=== PATIENT | female | born 1990 | race African-American/Black ===

== ENCOUNTER 2019-12-15 11:14 | Inpatient (IN) ==
[2019-12-15 13:00] LABS: INR 1.1; PT Patient Result 11.9 SECS (9.8-11.9)
[2019-12-15 13:10] LABS: Basophils % 0.6 % (0.0-0.8); Eosinophils # 0.1 10*3/uL (0.0-0.87); Eosinophils % 1.3 % (0.00-10.9); Immature Granulocytes % 0.5 %; Immature Granulocytes Absolute 0.03 #; Lymphocytes # 2.4 10*3/uL (1.4-4.0); Lymphocytes % 37.7 % (21.3-54.2); Mean Corpuscular Volume 80.1 FL (87-102); Monocytes % 9.9 % (1.7-12.7); Platelet Count 406 T/CUMM (130-400); Red Blood Count 3.87 MC/CUMM (3.8-5.5); Red Cell Distribution Width 16.2 % (9.3-17.3); White Blood Count 6.2 T/CUMM (4-12)
[2019-12-15 13:14] LABS: Albumin 3.1 G/DL (3.4-5.0); Bilirubin,Total 0.6 MG/DL (0.2-1.0); Calcium 8.4 MG/DL (8.5-10.1); Osmolality,Calculated 279.3 MOS/KG (273-304); Total Protein 6.9 G/DL (6.4-8.3)
[2019-12-15 13:26] LABS: Ferritin 17.4 ng/ml (8-252)
[2019-12-15 13:38] LABS: Apearance,Urine CLEAR (Clear); Bilirubin,Urine Negative (Negative); Blood, Urine Negative (Negative); Glucose,Urine (UA) Negative (Negative); Hyaline Casts,Urine 1 /LPF (0-3); Ketones,Urine Negative (Negative); Mucus,Urine Occasional /LPF (Occasional); Nitrite,Urine Negative (Negative); Protein,Urine 30 MG/DL; Squamous Epithelial Cell,Urine Few /HPF (0-10); Urine Color Yellow (Yellow); Urine Specific Gravity 1.011 (1.001-1.035); Urine Urobilinogen < 2.0 EU/DL (0.2-1.0)
[2019-12-15] MEDS ORDERED: FUROSEMIDE 100 MG/10 ML VIAL IV STA (13:51)
[2019-12-15] MEDS ORDERED: cefTRIAXone 1,000 MG in SODIUM CHLORIDE 0.9% 100 ML IV STA (14:01)
[2019-12-15] MEDS ORDERED: ACETAMINOPHEN 325 MG TABLET PO PRN (15:29)
[2019-12-15] MEDS ORDERED: DEXTROSE 50% 25 GM/50 ML VIAL IV PRN (15:29)
[2019-12-15] MEDS ORDERED: GLUCAGON 1 MG VIAL IM PRN (15:29)
[2019-12-15] MEDS ORDERED: diphenhydrAMINE CAP 25 MG CAPSULE PO PRN (15:29)
[2019-12-15] MEDS ORDERED: BISACODYL 5 MG TABLET PO PRN (15:29)
[2019-12-15] MEDS ORDERED: ONDANSETRON 4 MG/2 ML VIAL IV PRN (15:29)
[2019-12-15] MEDS ORDERED: DOCUSATE SODIUM 100 MG CAPSULE PO PRN (15:29)
[2019-12-15] MEDS ORDERED: ALUMINUM/MAGNES/SIMETH MAX STR 30 ML UDCUP PO PRN (15:29)
[2019-12-15] MEDS ORDERED: NICOTINE 21 MG/24 HR PATCH TRANSDERM PRN (15:29)
[2019-12-15] MEDS ORDERED: guaiFENesin/DM ER 600-30 MG TABLET PO PRN (15:29)
[2019-12-15] MEDS ORDERED: ZALEPLON 5 MG CAPSULE PO PRN (15:29)
[2019-12-15] MEDS ORDERED: LACTULOSE 20 GM/30 ML UDCUP PO PRN (15:29)
[2019-12-15] MEDS ORDERED: hydrALAZINE 20 MG/1 ML VIAL IV PRN (15:29)
[2019-12-15] MEDS ORDERED: CALCIUM CARBONATE CHEW 500 MG TABLET PO PRN (15:29)
[2019-12-15] MEDS ORDERED: SIMETHICONE CHEW 125 MG TABLET PO PRN (15:29)
[2019-12-15] MEDS ORDERED: traZODone 50 MG TABLET PO PRN (15:29)
[2019-12-15] MEDS ORDERED: MAGNESIUM SULF RIDER 2 GM in PREMIX 1 EACH IV PRN (15:39)
[2019-12-15] MEDS ORDERED: MAGNESIUM SULF RIDER 4 GM in PREMIX 1 EACH IV PRN (15:39)
[2019-12-15] MEDS ORDERED: FUROSEMIDE 40 MG/4 ML VIAL IV SCH (16:00)
[2019-12-15 17:39] LABS: Barbiturates Screen,Urine Negative (Negative); Benzodiazepines Screen,Urine Negative (Negative); Cannabinoid Screen,Urine Negative (Negative); Opiate Screen,Urine Negative (Negative); Phencyclidine Screen,Urine Negative (Negative)
[2019-12-15] MEDS ORDERED: HEPARIN DRIP 25,000 UNITS/500 ML PREMIX IV SCH (18:00)
[2019-12-15] MEDS: ALBUTEROL/IPRATROPIUM 3 ML NEB RESP TX SCH (19:36)
[2019-12-15 21:03] LABS: Hypochromasia 3+; Ovalocytes Slight
[2019-12-15] MEDS: guaiFENesin/DM ER 600-30 MG TABLET PO SCH (21:42)
[2019-12-15] MEDS: methylPREDNISolone SOD SUC 40 MG/1 ML VIAL IV SCH (21:42)
[2019-12-15] MEDS: CLINDAMYCIN INJ 900 MG in PREMIX 1 EACH IV SCH (21:42)
[2019-12-16] MEDS: POTASSIUM CHLORIDE RIDER 10 MEQ in PREMIX 1 EACH IV PRN ×2 (00:17→01:40)
[2019-12-16] MEDS: ALBUTEROL/IPRATROPIUM 3 ML NEB RESP TX SCH ×4 (01:04→19:54)
[2019-12-16] MEDS: CLINDAMYCIN INJ 900 MG in PREMIX 1 EACH IV SCH (04:55)
[2019-12-16] MEDS: methylPREDNISolone SOD SUC 40 MG/1 ML VIAL IV SCH (05:45)
[2019-12-16] MEDS: HEPARIN DRIP 25,000 UNITS/500 ML PREMIX IV SCH ×2 (05:50→15:44)
[2019-12-16 09:18] LABS: Bilirubin,Total 0.8 MG/DL (0.2-1.0); Calcium 8.8 MG/DL (8.5-10.1); Osmolality,Calculated 272.1 MOS/KG (273-304); Risk Ratio 4.18; Thyroid Stimulating Hormone 0.591 uIU/ml (0.358-3.74); Total Protein 7.6 G/DL (6.4-8.3)
[2019-12-16] MEDS: guaiFENesin/DM ER 600-30 MG TABLET PO SCH ×2 (09:44→21:31)
[2019-12-16] MEDS: FUROSEMIDE 40 MG/4 ML VIAL IV SCH (09:45)
[2019-12-16] MEDS: PANTOPRAZOLE 40 MG TABLET PO SCH (09:45)
[2019-12-16] MEDS: cefTRIAXone 1,000 MG in SYRINGE 1 EACH IV SCH (09:48)
[2019-12-16] MEDS ORDERED: predniSONE 20 MG TABLET PO SCH (14:00)
[2019-12-16] MEDS: predniSONE 20 MG TABLET PO SCH ×2 (14:42→21:31)
[2019-12-16] MEDS: CLINDAMYCIN 300 MG CAPSULE PO SCH ×2 (14:42→21:26)
[2019-12-16] MEDS: FUROSEMIDE 40 MG TABLET PO SCH (15:49)
[2019-12-16] MEDS ORDERED: carvediloL 6.25 MG TABLET PO SCH (21:00)
[2019-12-16] MEDS: SACUBITRIL/VALSARTAN 49-51 MG TABLET PO SCH (21:29)
[2019-12-16] MEDS: carvediloL 3.125 MG TABLET PO SCH (21:34)
[2019-12-17] MEDS: ALBUTEROL/IPRATROPIUM 3 ML NEB RESP TX SCH ×4 (01:00→20:08)
[2019-12-17] MEDS: HEPARIN DRIP 25,000 UNITS/500 ML PREMIX IV SCH ×2 (01:55→16:40)
[2019-12-17 02:11] LABS: Bilirubin,Total 0.4 MG/DL (0.2-1.0); Calcium 8.7 MG/DL (8.5-10.1); Osmolality,Calculated 278.7 MOS/KG (273-304); Total Protein 7.1 G/DL (6.4-8.3)
[2019-12-17 02:21] LABS: Basophils % 0.1 % (0.0-0.8); Hematocrit 31.9 VOL% (35.7-47.0); Hemoglobin 9.4 GM/DL (12.0-16.0); Immature Granulocytes % 0.4 %; Immature Granulocytes Absolute 0.06 #; Lymphocytes # 0.9 10*3/uL (1.4-4.0); Lymphocytes % 6.3 % (21.3-54.2); Mean Corpuscular HGB Conc 29.5 GM/DL (32-36); Mean Corpuscular Volume 79.6 FL (87-102); Mean Platelet Volume 9.1 FL (9.6-12.0); Monocytes % 4.1 % (1.7-12.7); Neutrophils % 89.1 % (38.7-73.9); Platelet Count 399 T/CUMM (130-400); Red Blood Count 4.01 MC/CUMM (3.8-5.5); Red Cell Distribution Width 16.4 % (9.3-17.3); White Blood Count 13.8 T/CUMM (4-12)
[2019-12-17] MEDS: CLINDAMYCIN 300 MG CAPSULE PO SCH (05:27)
[2019-12-17] MEDS: FUROSEMIDE 40 MG TABLET PO SCH ×2 (08:39→15:08)
[2019-12-17] MEDS: SACUBITRIL/VALSARTAN 49-51 MG TABLET PO SCH ×2 (08:39→21:51)
[2019-12-17] MEDS: FUROSEMIDE 40 MG/4 ML VIAL IV SCH (08:39)
[2019-12-17] MEDS: PANTOPRAZOLE 40 MG TABLET PO SCH (08:40)
[2019-12-17] MEDS: carvediloL 3.125 MG TABLET PO SCH (08:41)
[2019-12-17] MEDS: cefTRIAXone 1,000 MG in SYRINGE 1 EACH IV SCH (08:41)
[2019-12-17] MEDS: guaiFENesin/DM ER 600-30 MG TABLET PO SCH ×2 (08:41→21:51)
[2019-12-17] MEDS: CLINDAMYCIN INJ 900 MG in PREMIX 1 EACH IV SCH (10:50)
[2019-12-17] MEDS: CLINDAMYCIN 150 MG CAPSULE PO SCH ×2 (15:08→21:52)
[2019-12-17] MEDS: methylPREDNISolone SOD SUC 40 MG/1 ML VIAL IV SCH ×2 (15:09→21:53)
[2019-12-17] MEDS: carvediloL 6.25 MG TABLET PO SCH (16:40)
[2019-12-17] MEDS: SPIRONOLACTONE 25 MG TABLET PO SCH (16:40)
[2019-12-17] MEDS: APIXABAN 5 MG TABLET PO SCH (21:52)
[2019-12-18] MEDS: ALBUTEROL/IPRATROPIUM 3 ML NEB RESP TX SCH ×4 (00:42→19:36)
[2019-12-18 01:06] LABS: Basophils % 0.1 % (0.0-0.8); Hematocrit 31.6 VOL% (35.7-47.0); Hemoglobin 9.2 GM/DL (12.0-16.0); Immature Granulocytes % 0.7 %; Lymphocytes # 0.8 10*3/uL (1.4-4.0); Mean Corpuscular HGB Conc 29.1 GM/DL (32-36); Mean Corpuscular Volume 80.2 FL (87-102); Mean Platelet Volume 9.7 FL (9.6-12.0); Monocytes % 1.8 % (1.7-12.7); Neutrophils % 91.4 % (38.7-73.9); Platelet Count 317 T/CUMM (130-400); Red Blood Count 3.94 MC/CUMM (3.8-5.5); Red Cell Distribution Width 16.6 % (9.3-17.3); White Blood Count 14.1 T/CUMM (4-12)
[2019-12-18 01:35] LABS: Alanine Aminotransferase 25 U/L (13-56); Albumin 2.7 G/DL (3.4-5.0); Alkaline Phosphatase 102 U/L (45-117); Aspartate Amino Transferase 16 U/L (0-37); Bilirubin,Total < 0.39 MG/DL (0.2-1.0); Blood Urea Nitrogen 17 MG/DL (7-18); Calcium 8.1 MG/DL (8.5-10.1); Estimated Glom Filtration Rate 122 ML/MIN; Glucose 187 MG/DL (74-106); Osmolality,Calculated 285.4 MOS/KG (273-304); Total Protein 6.3 G/DL (6.4-8.3)
[2019-12-18 05:01] LABS: Lymphocytes 7 % (20-55); Segmented Neutrophils 91 % (50-85); Total Cells Counted 100
[2019-12-18 05:02] LABS: Hypochromasia 2+
[2019-12-18 05:03] LABS: Microcytosis 1+; Ovalocytes Few
[2019-12-18] MEDS: methylPREDNISolone SOD SUC 40 MG/1 ML VIAL IV SCH ×3 (05:50→21:57)
[2019-12-18] MEDS: CLINDAMYCIN 150 MG CAPSULE PO SCH ×3 (05:50→21:57)
[2019-12-18] MEDS ORDERED: KETOROLAC 30 MG/1 ML VIAL IV ONE (09:32)
[2019-12-18] MEDS: SPIRONOLACTONE 25 MG TABLET PO SCH (09:38)
[2019-12-18] MEDS: APIXABAN 5 MG TABLET PO SCH ×2 (09:39→21:58)
[2019-12-18] MEDS: FUROSEMIDE 40 MG TABLET PO SCH ×2 (09:39→16:14)
[2019-12-18] MEDS: SACUBITRIL/VALSARTAN 49-51 MG TABLET PO SCH ×2 (09:42→21:58)
[2019-12-18] MEDS: carvediloL 6.25 MG TABLET PO SCH ×2 (09:42→16:15)
[2019-12-18] MEDS: guaiFENesin/DM ER 600-30 MG TABLET PO SCH ×2 (09:42→21:57)
[2019-12-18] MEDS: PANTOPRAZOLE 40 MG TABLET PO SCH (09:42)
[2019-12-18] MEDS: cefTRIAXone 1,000 MG in SYRINGE 1 EACH IV SCH (09:45)
[2019-12-19] MEDS: ALBUTEROL/IPRATROPIUM 3 ML NEB RESP TX SCH ×2 (00:47→07:30)
[2019-12-19 04:43] LABS: Basophils % 0.1 % (0.0-0.8); Immature Granulocytes % 0.6 %; Lymphocytes % 5.8 % (21.3-54.2); Mean Corpuscular HGB Conc 28.7 GM/DL (32-36); Mean Corpuscular Volume 80.3 FL (87-102); Mean Platelet Volume 8.8 FL (9.6-12.0); Monocytes % 3.6 % (1.7-12.7); Neutrophils % 89.9 % (38.7-73.9); Platelet Count 412 T/CUMM (130-400); Red Blood Count 4.17 MC/CUMM (3.8-5.5); Red Cell Distribution Width 16.8 % (9.3-17.3); White Blood Count 16.5 T/CUMM (4-12)
[2019-12-19 05:15] LABS: Albumin 2.8 G/DL (3.4-5.0); Bilirubin,Total 0.6 MG/DL (0.2-1.0); Osmolality,Calculated 288.5 MOS/KG (273-304); Total Protein 6.5 G/DL (6.4-8.3)
[2019-12-19] MEDS: methylPREDNISolone SOD SUC 40 MG/1 ML VIAL IV SCH ×2 (05:34→15:08)
[2019-12-19] MEDS: CLINDAMYCIN 150 MG CAPSULE PO SCH ×2 (05:34→15:08)
[2019-12-19 05:38] LABS: Hematocrit 32.7 VOL% (35.7-47.0); Hemoglobin 9.7 GM/DL (12.0-16.0)
[2019-12-19 06:15] LABS: Anisocytosis 1+; Hypochromasia 2+; Microcytosis 1+; Ovalocytes Few; Platelet Estimate Increased; Polychromasia Slight
[2019-12-19] MEDS: guaiFENesin/DM ER 600-30 MG TABLET PO SCH (09:09)
[2019-12-19] MEDS: SACUBITRIL/VALSARTAN 49-51 MG TABLET PO SCH (09:09)
[2019-12-19] MEDS: cefTRIAXone 1,000 MG in SYRINGE 1 EACH IV SCH (09:10)
[2019-12-19] MEDS: SPIRONOLACTONE 25 MG TABLET PO SCH (09:10)
[2019-12-19] MEDS: PANTOPRAZOLE 40 MG TABLET PO SCH (09:10)
[2019-12-19] MEDS: carvediloL 6.25 MG TABLET PO SCH ×2 (09:10→17:11)
[2019-12-19] MEDS: FUROSEMIDE 40 MG TABLET PO SCH ×2 (09:10→17:11)
[2019-12-19] MEDS: APIXABAN 5 MG TABLET PO SCH (09:10)
[2019-12-19 16:56] VITALS: BP 123/75
== END 2019-12-19 18:50 | disposition home or self-care (01) | DRG 291 ==
LOC: N.ED 11:14 → N.EDINP 15:29 → SUATTDRO 15:29 → N.3E 17:35
PROVIDERS: ADMIT Hospitalist; ATTEND Emergency Medicine

== ENCOUNTER 2019-12-25 16:52 | Observation (INO) ==
[2019-12-25] MEDS ORDERED: VANCOMYCIN INJ 1,000 MG in SODIUM CHLORIDE 0.9% 250 ML IV STA (17:21)
[2019-12-25] MEDS ORDERED: ONDANSETRON 4 MG/2 ML VIAL IV STA (17:21)
[2019-12-25] MEDS ORDERED: FUROSEMIDE 100 MG/10 ML VIAL IV STA (17:21)
[2019-12-25] MEDS ORDERED: PIPERACILLIN/TAZOBACTAM 3,375 MG in SODIUM CHLORIDE 0.9% 100 ML IV STA (17:21)
[2019-12-25] MEDS ORDERED: ALBUTEROL/IPRATROPIUM 3 ML NEB RESP TX STA (17:21)
[2019-12-25] MEDS ORDERED: methylPREDNISolone SOD SUC 125 MG/2 ML VIAL IV STA (17:21)
[2019-12-25] MEDS ORDERED: LABETALOL 20 MG/4 ML SYRINGE IV STA (18:06)
[2019-12-25 19:52] LABS: Basophils % 0.5 % (0.0-0.8); Eosinophils # 0.1 10*3/uL (0.0-0.87); Eosinophils % 1.1 % (0.00-10.9); Hematocrit 31.1 VOL% (35.7-47.0); Hemoglobin 9.2 GM/DL (12.0-16.0); Immature Granulocytes % 0.5 %; Immature Granulocytes Absolute 0.04 #; Lymphocytes # 2.5 10*3/uL (1.4-4.0); Lymphocytes % 33.6 % (21.3-54.2); Mean Corpuscular HGB Conc 29.6 GM/DL (32-36); Mean Corpuscular Volume 77.9 FL (87-102); Mean Platelet Volume 8.6 FL (9.6-12.0); Monocytes % 7.1 % (1.7-12.7); Neutrophils % 57.2 % (38.7-73.9); Platelet Count 381 T/CUMM (130-400); Red Blood Count 3.99 MC/CUMM (3.8-5.5); Red Cell Distribution Width 17.6 % (9.3-17.3); White Blood Count 7.5 T/CUMM (4-12)
[2019-12-25 20:08] LABS: INR 1.1; PT Patient Result 11.9 SECS (9.8-11.9); Partial Thromboplastin Time 24.8 SECS (23.9-33.8)
[2019-12-25 20:16] LABS: Alanine Aminotransferase 40 U/L (13-56); Albumin 3.2 G/DL (3.4-5.0); Alkaline Phosphatase 80 U/L (45-117); Aspartate Amino Transferase 16 U/L (0-37); Blood Urea Nitrogen 10 MG/DL (7-18); Calcium 8.6 MG/DL (8.5-10.1); Estimated Glom Filtration Rate 142 ML/MIN; Ferritin 31.1 ng/ml (8-252); Glucose 95 MG/DL (74-106); Osmolality,Calculated 277.4 MOS/KG (273-304); Total Protein 6.4 G/DL (6.4-8.3); Troponin I 0.023 NG/ML (0.00-0.045)
[2019-12-25 20:47] LABS: Apearance,Urine CLEAR (Clear); Bilirubin,Urine Negative (Negative); Blood, Urine Negative (Negative); Glucose,Urine (UA) Negative (Negative); Ketones,Urine Negative (Negative); Nitrite,Urine Negative (Negative); Protein,Urine Negative; RBC,Urine <1 /HPF (0-4); Squamous Epithelial Cell,Urine Occasional /HPF (0-10); Urine Color Yellow (Yellow); Urine Specific Gravity 1.012 (1.001-1.035); WBC,Urine 1 /HPF (0-6)
[2019-12-25] MEDS ORDERED: ACETAMINOPHEN 325 MG TABLET PO PRN (21:31)
[2019-12-25] MEDS ORDERED: ONDANSETRON 4 MG/2 ML VIAL IV PRN (21:31)
[2019-12-25] MEDS ORDERED: DEXTROSE 50% 25 GM/50 ML VIAL IV PRN (21:31)
[2019-12-25] MEDS ORDERED: GLUCAGON 1 MG VIAL IM PRN (21:31)
[2019-12-25] MEDS: AMOXICILLIN/CLAV 875 MG TABLET PO SCH (23:37)
[2019-12-25] MEDS: ALBUTEROL/IPRATROPIUM 3 ML NEB RESP TX SCH (23:55)
[2019-12-26] MEDS: ALBUTEROL/IPRATROPIUM 3 ML NEB RESP TX SCH ×3 (03:01→11:00)
[2019-12-26] MEDS: methylPREDNISolone SOD SUC 40 MG/1 ML VIAL IV SCH ×2 (04:47→11:51)
[2019-12-26 06:01] LABS: Basophils % 0.1 % (0.0-0.8); Hematocrit 31.6 VOL% (35.7-47.0); Hemoglobin 9.5 GM/DL (12.0-16.0); Immature Granulocytes % 0.6 %; Immature Granulocytes Absolute 0.05 #; Lymphocytes # 0.6 10*3/uL (1.4-4.0); Lymphocytes % 6.8 % (21.3-54.2); Mean Corpuscular HGB Conc 30.1 GM/DL (32-36); Mean Platelet Volume 8.5 FL (9.6-12.0); Monocytes % 0.9 % (1.7-12.7); Neutrophils % 91.6 % (38.7-73.9); Platelet Count 360 T/CUMM (130-400); Red Blood Count 4.16 MC/CUMM (3.8-5.5); Red Cell Distribution Width 17.5 % (9.3-17.3)
[2019-12-26 06:28] LABS: Calcium 8.8 MG/DL (8.5-10.1); Lymphocytes 6 % (20-55); Osmolality,Calculated 279.5 MOS/KG (273-304); Platelet Estimate Adequate; Risk Ratio 4.46; Segmented Neutrophils 93 % (50-85); Total Cells Counted 100
[2019-12-26 06:29] LABS: Hypochromasia 1+; Microcytosis Slight; Ovalocytes Slight
[2019-12-26] MEDS ORDERED: PANTOPRAZOLE 40 MG TABLET PO SCH (09:00)
[2019-12-26] MEDS ORDERED: LOSARTAN 50 MG TABLET PO SCH (09:00)
[2019-12-26] MEDS ORDERED: APIXABAN 5 MG TABLET PO SCH (09:00)
[2019-12-26] MEDS ORDERED: POTASSIUM CHLORIDE 20 MEQ TABLET PO SCH (09:00)
[2019-12-26] MEDS ORDERED: carvediloL 12.5 MG TABLET PO SCH (09:00)
[2019-12-26] MEDS: AMOXICILLIN/CLAV 875 MG TABLET PO SCH (09:13)
[2019-12-26] MEDS: FUROSEMIDE 40 MG/4 ML VIAL IV SCH ×2 (09:13→16:48)
[2019-12-26 11:39] VITALS: BP 121/69
== END 2019-12-26 18:40 | disposition home or self-care (01) ==
LOC: N.ED 16:52 → INTOOBSV 21:31 → N.EDINP 21:31 → N.TELEN 22:29
PROVIDERS: ADMIT Internal Medicine; ATTEND Internal Medicine

== ENCOUNTER 2020-01-11 16:06 | Inpatient (IN) ==
[2020-01-11] MEDS ORDERED: FUROSEMIDE 40 MG/4 ML VIAL IV STA (17:38)
[2020-01-11 17:50] LABS: Basophils % 0.6 % (0.0-0.8); Eosinophils # 0.1 10*3/uL (0.0-0.87); Eosinophils % 1.9 % (0.00-10.9); Hematocrit 33.5 VOL% (35.7-47.0); Hemoglobin 9.9 GM/DL (12.0-16.0); Immature Granulocytes % 0.3 %; Immature Granulocytes Absolute 0.02 #; Lymphocytes # 2.6 10*3/uL (1.4-4.0); Lymphocytes % 38.8 % (21.3-54.2); Mean Corpuscular HGB Conc 29.6 GM/DL (32-36); Mean Corpuscular Volume 77.4 FL (87-102); Mean Platelet Volume 8.7 FL (9.6-12.0); Monocytes % 8.8 % (1.7-12.7); Neutrophils % 49.6 % (38.7-73.9); Platelet Count 372 T/CUMM (130-400); Red Blood Count 4.33 MC/CUMM (3.8-5.5); Red Cell Distribution Width 18.8 % (9.3-17.3); White Blood Count 6.7 T/CUMM (4-12)
[2020-01-11 17:53] LABS: Albumin 3.3 G/DL (3.4-5.0); Bilirubin,Total 0.4 MG/DL (0.2-1.0); Calcium 8.8 MG/DL (8.5-10.1); Osmolality,Calculated 273.7 MOS/KG (273-304); Total Protein 6.9 G/DL (6.4-8.3)
[2020-01-11 18:00] LABS: INR 1.1; PT Patient Result 11.6 SECS (9.8-11.9)
[2020-01-11 18:11] LABS: Anisocytosis 1+; Eosinophils 1 % (0-10); Hypochromasia 1+; Lymphocytes 25 % (20-55); Macrocytosis Slight; Microcytosis 1+; Platelet Estimate Normal; Polychromasia Few; Segmented Neutrophils 67 % (50-85); Total Cells Counted 100
[2020-01-11] MEDS ORDERED: MORPHINE 4 MG/1 ML VIAL IV PRN (19:22)
[2020-01-11] MEDS ORDERED: SIMETHICONE CHEW 125 MG TABLET PO PRN (19:22)
[2020-01-11] MEDS ORDERED: ALUMINUM/MAGNES/SIMETH MAX STR 30 ML UDCUP PO PRN (19:22)
[2020-01-11] MEDS ORDERED: diphenhydrAMINE CAP 25 MG CAPSULE PO PRN (19:22)
[2020-01-11] MEDS ORDERED: CALCIUM CARBONATE CHEW 500 MG TABLET PO PRN (19:22)
[2020-01-11] MEDS ORDERED: ZALEPLON 5 MG CAPSULE PO PRN (19:22)
[2020-01-11] MEDS ORDERED: hydrALAZINE 20 MG/1 ML VIAL IV PRN (19:22)
[2020-01-11] MEDS ORDERED: GLUCAGON 1 MG VIAL IM PRN (19:22)
[2020-01-11] MEDS ORDERED: DEXTROSE 50% 25 GM/50 ML VIAL IV PRN (19:22)
[2020-01-11] MEDS ORDERED: PROMETHAZINE 25 MG/1 ML VIAL IM PRN (19:22)
[2020-01-11] MEDS ORDERED: AZITHROMYCIN INJ 500 MG in SODIUM CHLORIDE 0.9% 250 ML IV SCH (19:30)
[2020-01-11] MEDS ORDERED: ALBUTEROL INHALER 18 GM INH PRN (20:12)
[2020-01-11] MEDS: APIXABAN 5 MG TABLET PO SCH (23:23)
[2020-01-11] MEDS: DOCUSATE SODIUM 100 MG CAPSULE PO SCH (23:23)
[2020-01-11] MEDS: carvediloL 12.5 MG TABLET PO SCH (23:24)
[2020-01-12] MEDS: cefTRIAXone 1,000 MG in SYRINGE 1 EACH IV SCH ×2 (00:28→20:12)
[2020-01-12] MEDS: ONDANSETRON 4 MG/2 ML VIAL IV PRN ×2 (00:36→12:31)
[2020-01-12] MEDS: ALBUTEROL INHALER 18 GM INH SCH ×9 (06:04→22:10)
[2020-01-12 07:07] LABS: Albumin 3.2 G/DL (3.4-5.0); Bilirubin,Total 1.1 MG/DL (0.2-1.0); Calcium 8.9 MG/DL (8.5-10.1); Total Protein 6.9 G/DL (6.4-8.3)
[2020-01-12 07:08] LABS: Osmolality,Calculated 278.3 MOS/KG (273-304)
[2020-01-12 07:13] LABS: Basophils % 0.3 % (0.0-0.8); Eosinophils # 0.2 10*3/uL (0.0-0.87); Eosinophils % 2.9 % (0.00-10.9); Hematocrit 33.4 VOL% (35.7-47.0); Immature Granulocytes % 0.3 %; Immature Granulocytes Absolute 0.02 #; Lymphocytes # 2.2 10*3/uL (1.4-4.0); Lymphocytes % 36.3 % (21.3-54.2); Mean Corpuscular HGB Conc 28.7 GM/DL (32-36); Mean Corpuscular Volume 78.8 FL (87-102); Mean Platelet Volume 8.5 FL (9.6-12.0); Monocytes % 8.5 % (1.7-12.7); Neutrophils % 51.7 % (38.7-73.9); Platelet Count 356 T/CUMM (130-400); Red Blood Count 4.24 MC/CUMM (3.8-5.5); Red Cell Distribution Width 18.9 % (9.3-17.3); White Blood Count 6.2 T/CUMM (4-12)
[2020-01-12 07:15] LABS: Hemoglobin 9.6 GM/DL (12.0-16.0)
[2020-01-12 07:42] LABS: Hypochromasia 1+; Microcytosis Slight; Ovalocytes Slight; Platelet Estimate Adequate
[2020-01-12] MEDS: PANTOPRAZOLE 40 MG TABLET PO SCH (08:04)
[2020-01-12] MEDS: POTASSIUM CHLORIDE 20 MEQ TABLET PO SCH (08:04)
[2020-01-12] MEDS: DOCUSATE SODIUM 100 MG CAPSULE PO SCH ×2 (08:04→20:12)
[2020-01-12] MEDS: FUROSEMIDE 40 MG/4 ML VIAL IV SCH ×2 (08:05→16:15)
[2020-01-12] MEDS: APIXABAN 5 MG TABLET PO SCH ×2 (08:05→20:12)
[2020-01-12] MEDS: AZITHROMYCIN 250 MG TABLET PO SCH (08:05)
[2020-01-12] MEDS: guaiFENesin/DM ER 600-30 MG TABLET PO PRN (08:05)
[2020-01-12] MEDS: carvediloL 12.5 MG TABLET PO SCH ×2 (08:05→16:15)
[2020-01-12] MEDS: NICOTINE 21 MG/24 HR PATCH TRANSDERM SCH (08:06)
[2020-01-12] MEDS ORDERED: LOSARTAN 50 MG TABLET PO SCH (09:00)
[2020-01-12 13:36] LABS: Troponin I < 0.015 NG/ML (0.00-0.045)
[2020-01-12] MEDS: ACETAMINOPHEN 325 MG TABLET PO PRN ×2 (16:14→23:34)
[2020-01-13] MEDS: ALBUTEROL INHALER 18 GM INH SCH ×6 (01:10→17:14)
[2020-01-13 07:46] LABS: Calcium 8.3 MG/DL (8.5-10.1); Osmolality,Calculated 261.7 MOS/KG (273-304)
[2020-01-13 08:17] LABS: Basophils % 0.5 % (0.0-0.8); Eosinophils # 0.2 10*3/uL (0.0-0.87); Eosinophils % 2.8 % (0.00-10.9); Hematocrit 31.3 VOL% (35.7-47.0); Immature Granulocytes % 0.3 %; Immature Granulocytes Absolute 0.02 #; Lymphocytes # 3.2 10*3/uL (1.4-4.0); Lymphocytes % 52.4 % (21.3-54.2); Mean Corpuscular HGB Conc 28.8 GM/DL (32-36); Mean Corpuscular Volume 79.8 FL (87-102); Mean Platelet Volume 8.8 FL (9.6-12.0); Monocytes % 10.2 % (1.7-12.7); Neutrophils % 33.8 % (38.7-73.9); Platelet Count 357 T/CUMM (130-400); Red Blood Count 3.92 MC/CUMM (3.8-5.5); Red Cell Distribution Width 18.7 % (9.3-17.3); White Blood Count 6.1 T/CUMM (4-12)
[2020-01-13 08:27] LABS: Band Neutrophils 1 % (0-10); Eosinophils 6 % (0-10); Hypochromasia 2+; Lymphocytes 48 % (20-55); Microcytosis Slight; Ovalocytes Slight; Platelet Estimate Adequate; Segmented Neutrophils 38 % (50-85); Total Cells Counted 100
[2020-01-13] MEDS: guaiFENesin/DM ER 600-30 MG TABLET PO PRN (09:20)
[2020-01-13] MEDS: DOCUSATE SODIUM 100 MG CAPSULE PO SCH (09:21)
[2020-01-13] MEDS: FUROSEMIDE 40 MG/4 ML VIAL IV SCH ×2 (09:21→17:14)
[2020-01-13] MEDS: AZITHROMYCIN 250 MG TABLET PO SCH (09:21)
[2020-01-13] MEDS: LOSARTAN 25 MG TABLET PO SCH ×2 (09:21→09:37)
[2020-01-13] MEDS: PANTOPRAZOLE 40 MG TABLET PO SCH (09:21)
[2020-01-13] MEDS: carvediloL 12.5 MG TABLET PO SCH (09:21)
[2020-01-13] MEDS: APIXABAN 5 MG TABLET PO SCH (09:21)
[2020-01-13] MEDS: POTASSIUM CHLORIDE 20 MEQ TABLET PO SCH (09:21)
[2020-01-13] MEDS: NICOTINE 21 MG/24 HR PATCH TRANSDERM SCH (09:22)
[2020-01-13] MEDS: ONDANSETRON 4 MG/2 ML VIAL IV PRN (09:22)
[2020-01-13 09:23] LABS: Ferritin 25.1 ng/ml (8-252)
[2020-01-13] MEDS: ACETAMINOPHEN 325 MG TABLET PO PRN (09:25)
[2020-01-13 09:45] LABS: Folate 12.2 NG/ML (5.4-24.0)
[2020-01-13 17:20] VITALS: BP 100/81
== END 2020-01-13 16:55 | disposition home or self-care (01) | DRG 291 ==
LOC: N.ED 16:06 → N.EDINP 19:22 → N.2E 20:08
PROVIDERS: ADMIT Internal Medicine; ATTEND Internal Medicine

== ENCOUNTER 2020-01-17 21:07 | Observation (INO) ==
[2020-01-17] MEDS ORDERED: ONDANSETRON 4 MG/2 ML VIAL IV STA (21:41)
[2020-01-17] MEDS ORDERED: AZITHROMYCIN INJ 500 MG in SODIUM CHLORIDE 0.9% 250 ML IV STA (21:41)
[2020-01-17] MEDS ORDERED: methylPREDNISolone SOD SUC 125 MG/2 ML VIAL IV STA (21:41)
[2020-01-17] MEDS ORDERED: FUROSEMIDE 100 MG/10 ML VIAL IV STA (21:41)
[2020-01-17] MEDS ORDERED: hydrALAZINE 20 MG/1 ML VIAL IV STA (21:41)
[2020-01-17] MEDS ORDERED: ALBUTEROL NEB SOLN 5 MG/ML 20 ML/BOTTLE CONT NEB SCH (22:00)
[2020-01-17 23:48] LABS: Basophils % 0.5 % (0.0-0.8); Eosinophils # 0.1 10*3/uL (0.0-0.87); Eosinophils % 0.6 % (0.00-10.9); Hematocrit 32.1 VOL% (35.7-47.0); Immature Granulocytes % 0.1 %; Immature Granulocytes Absolute 0.01 #; Lymphocytes # 2.6 10*3/uL (1.4-4.0); Lymphocytes % 31.6 % (21.3-54.2); Mean Corpuscular Volume 78.3 FL (87-102); Mean Platelet Volume 8.5 FL (9.6-12.0); Monocytes % 5.7 % (1.7-12.7); Neutrophils % 61.5 % (38.7-73.9); Platelet Count 378 T/CUMM (130-400); Red Cell Distribution Width 19.4 % (9.3-17.3); White Blood Count 8.1 T/CUMM (4-12)
[2020-01-17 23:55] LABS: Hemoglobin 9.4 GM/DL (12.0-16.0)
[2020-01-18] LABS: INR 1.1; PT Patient Result 12.1 SECS (9.8-11.9); Partial Thromboplastin Time 20.8 SECS (23.9-33.8)
[2020-01-18 00:23] LABS: Alanine Aminotransferase 24 U/L (13-56); Albumin 3.2 G/DL (3.4-5.0); Alkaline Phosphatase 96 U/L (45-117); Aspartate Amino Transferase 19 U/L (0-37); Blood Urea Nitrogen 8 MG/DL (7-18); Calcium 8.4 MG/DL (8.5-10.1); Estimated Glom Filtration Rate 138 ML/MIN; Ferritin 15.2 ng/ml (8-252); Glucose 95 MG/DL (74-106); Osmolality,Calculated 274.5 MOS/KG (273-304); Total Protein 6.5 G/DL (6.4-8.3); Troponin I 0.038 NG/ML (0.00-0.045)
[2020-01-18 00:51] LABS: Bilirubin,Urine Negative (Negative); Blood, Urine Large mg/dL (Negative); Glucose,Urine (UA) Negative (Negative); Ketones,Urine Negative (Negative); Nitrite,Urine Negative (Negative); Protein,Urine 30 MG/DL; RBC,Urine 447 /HPF (0-4); Squamous Epithelial Cell,Urine Occasional /HPF (0-10); Urine Appearance Slightly Hazy (Clear); Urine Color Yellow (Yellow); Urine Urobilinogen < 2.0 EU/DL (0.2-1.0)
[2020-01-18 01:38] LABS: Barbiturates Screen,Urine Negative (Negative); Benzodiazepines Screen,Urine Negative (Negative); Cannabinoid Screen,Urine Negative (Negative); Opiate Screen,Urine Negative (Negative); Phencyclidine Screen,Urine Negative (Negative)
[2020-01-18] MEDS ORDERED: MORPHINE 4 MG/1 ML VIAL IV PRN (03:45)
[2020-01-18] MEDS ORDERED: DOCUSATE SODIUM 100 MG CAPSULE PO PRN (03:45)
[2020-01-18] MEDS ORDERED: ONDANSETRON 4 MG/2 ML VIAL IV PRN (03:45)
[2020-01-18] MEDS ORDERED: hydrALAZINE 20 MG/1 ML VIAL IV PRN (03:45)
[2020-01-18] MEDS ORDERED: MAGNESIUM SULF RIDER 4 GM in PREMIX 1 EACH IV PRN (03:55)
[2020-01-18] MEDS ORDERED: MAGNESIUM SULF RIDER 2 GM in PREMIX 1 EACH IV PRN (03:55)
[2020-01-18] MEDS ORDERED: POTASSIUM CHLORIDE 20 MEQ TABLET PO PRN (03:56)
[2020-01-18 04:38] LABS: Basophils % 0.3 % (0.0-0.8); Hematocrit 33.1 VOL% (35.7-47.0); Hemoglobin 9.7 GM/DL (12.0-16.0); Immature Granulocytes % 0.6 %; Immature Granulocytes Absolute 0.05 #; Lymphocytes # 0.6 10*3/uL (1.4-4.0); Lymphocytes % 7.7 % (21.3-54.2); Mean Corpuscular HGB Conc 29.3 GM/DL (32-36); Mean Corpuscular Volume 77.2 FL (87-102); Mean Platelet Volume 8.6 FL (9.6-12.0); Monocytes % 1.1 % (1.7-12.7); Neutrophils % 90.3 % (38.7-73.9); Platelet Count 373 T/CUMM (130-400); Red Blood Count 4.29 MC/CUMM (3.8-5.5); Red Cell Distribution Width 19.4 % (9.3-17.3)
[2020-01-18 05:25] LABS: Calcium 8.8 MG/DL (8.5-10.1); Osmolality,Calculated 275.5 MOS/KG (273-304)
[2020-01-18] MEDS: FUROSEMIDE 40 MG/4 ML VIAL IV SCH ×2 (08:27→15:37)
[2020-01-18] MEDS ORDERED: carvediloL 12.5 MG TABLET PO SCH (09:00)
[2020-01-18] MEDS: POTASSIUM CHLORIDE 20 MEQ TABLET PO SCH (09:40)
[2020-01-18] MEDS: LOSARTAN 50 MG TABLET PO SCH (09:40)
[2020-01-18] MEDS: APIXABAN 5 MG TABLET PO SCH ×2 (09:40→20:32)
[2020-01-18] MEDS ORDERED: carvediloL 25 MG TABLET PO SCH (12:47)
[2020-01-18] MEDS ORDERED: DEXTROSE 50% 25 GM/50 ML VIAL IV PRN (13:35)
[2020-01-18] MEDS ORDERED: GLUCAGON 1 MG VIAL IM PRN (13:35)
[2020-01-18] MEDS: INSULIN LISPRO 100 UNIT/ML SUBCUT SCH ×2 (18:02→20:31)
[2020-01-19 07:11] LABS: Basophils % 0.3 % (0.0-0.8); Eosinophils # 0.1 10*3/uL (0.0-0.87); Eosinophils % 0.5 % (0.00-10.9); Hematocrit 29.9 VOL% (35.7-47.0); Hemoglobin 8.7 GM/DL (12.0-16.0); Immature Granulocytes % 0.4 %; Immature Granulocytes Absolute 0.04 #; Lymphocytes # 2.7 10*3/uL (1.4-4.0); Lymphocytes % 28.6 % (21.3-54.2); Mean Corpuscular HGB Conc 29.1 GM/DL (32-36); Mean Corpuscular Volume 77.7 FL (87-102); Mean Platelet Volume 8.8 FL (9.6-12.0); Neutrophils % 63.2 % (38.7-73.9); Platelet Count 336 T/CUMM (130-400); Red Blood Count 3.85 MC/CUMM (3.8-5.5); Red Cell Distribution Width 19.1 % (9.3-17.3); White Blood Count 9.4 T/CUMM (4-12)
[2020-01-19 07:24] LABS: Calcium 8.1 MG/DL (8.5-10.1); Osmolality,Calculated 280.5 MOS/KG (273-304)
[2020-01-19] MEDS: INSULIN LISPRO 100 UNIT/ML SUBCUT SCH ×4 (07:48→21:20)
[2020-01-19] MEDS: ACETAMINOPHEN 325 MG TABLET PO PRN ×2 (08:11→17:37)
[2020-01-19] MEDS: LOSARTAN 50 MG TABLET PO SCH (09:21)
[2020-01-19] MEDS: FUROSEMIDE 40 MG/4 ML VIAL IV SCH ×2 (09:22→15:37)
[2020-01-19] MEDS: carvediloL 12.5 MG TABLET PO SCH ×2 (09:22→16:59)
[2020-01-19] MEDS: APIXABAN 5 MG TABLET PO SCH ×2 (09:22→21:21)
[2020-01-19] MEDS: POTASSIUM CHLORIDE 20 MEQ TABLET PO SCH (09:31)
[2020-01-19] MEDS: ACETAMINOPHEN 325 MG TABLET PO SCH ×2 (14:05→21:22)
[2020-01-19] MEDS: GABAPENTIN 100 MG CAPSULE PO SCH ×2 (14:05→21:21)
[2020-01-19] MEDS: DOCUSATE SODIUM 100 MG CAPSULE PO SCH ×2 (14:05→21:21)
[2020-01-19] MEDS: FERROUS SULFATE 325 MG TABLET PO SCH ×2 (14:05→21:21)
[2020-01-19] MEDS: POLYETHYLENE GLYCOL POWDER 17 GM PACK PO SCH ×2 (14:05→21:20)
[2020-01-19] MEDS ORDERED: NITROGLYCERIN SL 0.4 MG TABLET SL PRN (15:24)
[2020-01-19] MEDS ORDERED: SODIUM CHLORIDE 0.9% 250 ML IV ONE (20:33)
[2020-01-19] MEDS: SENNA 8.6 MG TABLET PO SCH (21:21)
[2020-01-19] MEDS: TAMSULOSIN 0.4 MG CAPSULE PO SCH (21:21)
[2020-01-20 07:51] LABS: Calcium 8.4 MG/DL (8.5-10.1); Osmolality,Calculated 276.7 MOS/KG (273-304)
[2020-01-20 07:54] LABS: Basophils # 0.1 10*3/uL (0.0-0.2); Basophils % 0.8 % (0.0-0.8); Eosinophils # 0.1 10*3/uL (0.0-0.87); Eosinophils % 1.7 % (0.00-10.9); Hematocrit 32.9 VOL% (35.7-47.0); Hemoglobin 9.8 GM/DL (12.0-16.0); Immature Granulocytes % 0.2 %; Immature Granulocytes Absolute 0.01 #; Lymphocytes # 3.3 10*3/uL (1.4-4.0); Lymphocytes % 50.8 % (21.3-54.2); Mean Corpuscular HGB Conc 29.8 GM/DL (32-36); Mean Corpuscular Volume 77.6 FL (87-102); Mean Platelet Volume 8.8 FL (9.6-12.0); Monocytes % 7.1 % (1.7-12.7); Neutrophils % 39.4 % (38.7-73.9); Platelet Count 369 T/CUMM (130-400); Red Blood Count 4.24 MC/CUMM (3.8-5.5); Red Cell Distribution Width 19.1 % (9.3-17.3); White Blood Count 6.5 T/CUMM (4-12)
[2020-01-20] MEDS ORDERED: metOLazone 2.5 MG TABLET PO SCH (09:00)
[2020-01-20 09:03] LABS: Eosinophils 2 % (0-10); Lymphocytes 53 % (20-55); Platelet Estimate Normal; Segmented Neutrophils 39 % (50-85); Total Cells Counted 100
[2020-01-20 09:04] LABS: Anisocytosis 2+; Hypochromasia Slight; Poikilocytosis 1+; Smudge Cells Few
[2020-01-20] MEDS: POLYETHYLENE GLYCOL POWDER 17 GM PACK PO SCH ×4 (09:11→20:44)
[2020-01-20] MEDS: ACETAMINOPHEN 325 MG TABLET PO SCH ×2 (09:11→20:41)
[2020-01-20] MEDS: APIXABAN 5 MG TABLET PO SCH ×2 (09:12→20:40)
[2020-01-20] MEDS: metOLazone 2.5 MG TABLET PO SCH (09:12)
[2020-01-20] MEDS: POTASSIUM CHLORIDE 20 MEQ TABLET PO SCH (09:12)
[2020-01-20] MEDS: FERROUS SULFATE 325 MG TABLET PO SCH ×2 (09:12→20:40)
[2020-01-20] MEDS: GABAPENTIN 100 MG CAPSULE PO SCH ×3 (09:12→20:41)
[2020-01-20] MEDS: FUROSEMIDE 40 MG/4 ML VIAL IV SCH ×2 (09:13→16:37)
[2020-01-20] MEDS: DOCUSATE SODIUM 100 MG CAPSULE PO SCH ×2 (09:13→20:42)
[2020-01-20] MEDS: INSULIN LISPRO 100 UNIT/ML SUBCUT SCH ×4 (09:13→20:45)
[2020-01-20] MEDS: LOSARTAN 50 MG TABLET PO SCH (09:31)
[2020-01-20] MEDS ORDERED: LOSARTAN 25 MG TABLET PO SCH (09:43)
[2020-01-20] MEDS: carvediloL 12.5 MG TABLET PO SCH (10:09)
[2020-01-20] MEDS ORDERED: MAGNESIUM CITRATE 300 ML BOTTLE PO ONE (12:51)
[2020-01-20] MEDS: ACETAMINOPHEN 325 MG TABLET PO PRN (12:51)
[2020-01-20] MEDS: LACTULOSE 20 GM/30 ML UDCUP PO SCH ×3 (13:14→20:45)
[2020-01-20] MEDS: carvediloL 6.25 MG TABLET PO SCH (16:37)
[2020-01-20] MEDS: TAMSULOSIN 0.4 MG CAPSULE PO SCH (20:40)
[2020-01-20] MEDS: SENNA 8.6 MG TABLET PO SCH (20:40)
[2020-01-21] MEDS: LACTULOSE 20 GM/30 ML UDCUP PO SCH ×5 (02:19→16:44)
[2020-01-21] MEDS: POLYETHYLENE GLYCOL POWDER 17 GM PACK PO SCH ×5 (02:20→16:45)
[2020-01-21] MEDS: INSULIN LISPRO 100 UNIT/ML SUBCUT SCH ×4 (08:25→21:26)
[2020-01-21] MEDS: carvediloL 6.25 MG TABLET PO SCH (08:26)
[2020-01-21] MEDS: LINACLOTIDE 145 MCG CAPSULE PO SCH (08:26)
[2020-01-21] MEDS: DOCUSATE SODIUM 100 MG CAPSULE PO SCH ×2 (08:27→21:26)
[2020-01-21] MEDS: FUROSEMIDE 40 MG/4 ML VIAL IV SCH ×2 (08:27→16:44)
[2020-01-21] MEDS: APIXABAN 5 MG TABLET PO SCH ×2 (08:28→21:26)
[2020-01-21] MEDS: GABAPENTIN 100 MG CAPSULE PO SCH ×3 (08:28→21:26)
[2020-01-21] MEDS: FERROUS SULFATE 325 MG TABLET PO SCH (08:28)
[2020-01-21] MEDS: POTASSIUM CHLORIDE 20 MEQ TABLET PO SCH (08:28)
[2020-01-21] MEDS: ACETAMINOPHEN 325 MG TABLET PO SCH ×2 (08:28→21:25)
[2020-01-21] MEDS: CHOLECALCIFEROL 1,000 UNIT TABLET PO SCH (08:29)
[2020-01-21] MEDS: metOLazone 2.5 MG TABLET PO SCH (08:29)
[2020-01-21 08:44] LABS: % Iron Saturation 9.1 % (18-50); Ferritin 18.8 ng/ml (8-252)
[2020-01-21 08:55] LABS: Basophils % 0.7 % (0.0-0.8); Eosinophils # 0.1 10*3/uL (0.0-0.87); Eosinophils % 2.1 % (0.00-10.9); Hematocrit 31.6 VOL% (35.7-47.0); Hemoglobin 9.4 GM/DL (12.0-16.0); Immature Granulocytes % 0.2 %; Immature Granulocytes Absolute 0.01 #; Lymphocytes # 2.8 10*3/uL (1.4-4.0); Lymphocytes % 45.9 % (21.3-54.2); Mean Corpuscular HGB Conc 29.7 GM/DL (32-36); Mean Corpuscular Volume 77.3 FL (87-102); Mean Platelet Volume 8.3 FL (9.6-12.0); Monocytes % 8.1 % (1.7-12.7); Platelet Count 369 T/CUMM (130-400); Red Blood Count 4.09 MC/CUMM (3.8-5.5); White Blood Count 6.1 T/CUMM (4-12)
[2020-01-21 08:55] LABS: Basophils # 0.1 10*3/uL (0.0-0.2); Basophils % 0.8 % (0.0-0.8); Eosinophils # 0.2 10*3/uL (0.0-0.87); Eosinophils % 2.4 % (0.00-10.9); Hematocrit 31.4 VOL% (35.7-47.0); Hemoglobin 9.2 GM/DL (12.0-16.0); Immature Granulocytes % 0.3 %; Immature Granulocytes Absolute 0.02 #; Lymphocytes # 2.9 10*3/uL (1.4-4.0); Lymphocytes % 46.1 % (21.3-54.2); Mean Corpuscular HGB Conc 29.3 GM/DL (32-36); Mean Corpuscular Volume 77.3 FL (87-102); Mean Platelet Volume 8.7 FL (9.6-12.0); Monocytes % 7.6 % (1.7-12.7); Neutrophils % 42.8 % (38.7-73.9); Platelet Count 381 T/CUMM (130-400); Red Blood Count 4.06 MC/CUMM (3.8-5.5); Red Cell Distribution Width 18.8 % (9.3-17.3); White Blood Count 6.3 T/CUMM (4-12)
[2020-01-21 09:04] LABS: Hemoglobin A1 (Alkaline) 97.4 % (96.5-98.5); Hemoglobin A2 (Alkaline) 2.6 % (1.5-3.5)
[2020-01-21 09:16] LABS: Eosinophils 5 % (0-10); Lymphocytes 50 % (20-55); Segmented Neutrophils 39 % (50-85); Total Cells Counted 100
[2020-01-21 09:17] LABS: Atypical Lymphocytes Few; Hypochromasia 1+; Microcytosis 1+; Ovalocytes Slight; Platelet Estimate Adequate
[2020-01-21 09:37] LABS: Free T4 (Free Thyroxine) 0.95 NG/DL (0.76-1.46); Thyroid Stimulating Hormone 2.08 uIU/ml (0.358-3.74)
[2020-01-21 09:38] LABS: Folate 8.2 NG/ML (5.4-24.0); Vitamin B12 442 PG/ML (211-911)
[2020-01-21 09:39] LABS: Calcium 8.6 MG/DL (8.5-10.1); Osmolality,Calculated 279.4 MOS/KG (273-304)
[2020-01-21] MEDS: LOSARTAN 25 MG TABLET PO SCH (09:41)
[2020-01-21 09:58] LABS: Sedimentation Rate-Westergren 10 MM/HR (0-20)
[2020-01-21] MEDS ORDERED: ERGOCALCIFEROL 50,000 UNIT CAPSULE PO ONE (10:39)
[2020-01-21] MEDS ORDERED: IRON SUCROSE 300 MG in SODIUM CHLORIDE 0.9% 100 ML IV ONE (11:00)
[2020-01-21] MEDS ORDERED: BISACODYL 5 MG TABLET PO ONE (14:08)
[2020-01-21] MEDS: carvediloL 3.125 MG TABLET PO SCH (16:34)
[2020-01-21] MEDS: METOCLOPRAMIDE 10 MG/2 ML VIAL IV SCH ×2 (17:48→23:54)
[2020-01-21] MEDS: TAMSULOSIN 0.4 MG CAPSULE PO SCH (21:26)
[2020-01-21] MEDS: SENNA 8.6 MG TABLET PO SCH (21:26)
[2020-01-22] MEDS: METOCLOPRAMIDE 10 MG/2 ML VIAL IV SCH ×2 (05:58→11:39)
[2020-01-22 07:44] LABS: Basophils % 0.6 % (0.0-0.8); Eosinophils # 0.2 10*3/uL (0.0-0.87); Eosinophils % 2.3 % (0.00-10.9); Hematocrit 31.7 VOL% (35.7-47.0); Hemoglobin 9.3 GM/DL (12.0-16.0); Immature Granulocytes % 0.3 %; Immature Granulocytes Absolute 0.02 #; Lymphocytes % 28.7 % (21.3-54.2); Mean Corpuscular HGB Conc 29.3 GM/DL (32-36); Mean Corpuscular Volume 78.5 FL (87-102); Mean Platelet Volume 8.9 FL (9.6-12.0); Monocytes % 8.5 % (1.7-12.7); Neutrophils % 59.6 % (38.7-73.9); Platelet Count 379 T/CUMM (130-400); Red Blood Count 4.04 MC/CUMM (3.8-5.5); White Blood Count 7.1 T/CUMM (4-12)
[2020-01-22 08:03] LABS: Calcium 8.6 MG/DL (8.5-10.1); Osmolality,Calculated 279.5 MOS/KG (273-304)
[2020-01-22] MEDS ORDERED: POTASSIUM CHLORIDE 20 MEQ TABLET PO SCH (08:44)
[2020-01-22] MEDS ORDERED: DOCUSATE SODIUM 100 MG CAPSULE PO SCH (08:46)
[2020-01-22] MEDS: GABAPENTIN 100 MG CAPSULE PO SCH (08:50)
[2020-01-22] MEDS: FUROSEMIDE 40 MG/4 ML VIAL IV SCH (08:51)
[2020-01-22] MEDS: LOSARTAN 25 MG TABLET PO SCH (08:51)
[2020-01-22] MEDS: metOLazone 2.5 MG TABLET PO SCH (08:52)
[2020-01-22] MEDS: CHOLECALCIFEROL 1,000 UNIT TABLET PO SCH (08:53)
[2020-01-22] MEDS: carvediloL 3.125 MG TABLET PO SCH (08:53)
[2020-01-22] MEDS: LINACLOTIDE 145 MCG CAPSULE PO SCH (08:53)
[2020-01-22] MEDS: APIXABAN 5 MG TABLET PO SCH (08:54)
[2020-01-22] MEDS: ACETAMINOPHEN 325 MG TABLET PO SCH (08:54)
[2020-01-22] MEDS: INSULIN LISPRO 100 UNIT/ML SUBCUT SCH ×2 (08:55→11:16)
[2020-01-22] MEDS ORDERED: MAGNESIUM CHLORIDE 64 MG TABLET PO SCH (09:00)
[2020-01-22] MEDS ORDERED: POLYETHYLENE GLYCOL POWDER 17 GM PACK PO SCH ×2 (09:00→15:00)
[2020-01-22] MEDS ORDERED: SENNA 8.6 MG TABLET PO PRN (11:57)
[2020-01-22 12:03] VITALS: BP 103/61
[2020-01-22] MEDS ORDERED: FUROSEMIDE 20 MG TABLET PO SCH (16:00)
[2020-01-22] MEDS ORDERED: PSYLLIUM POWDER 3.7 GM/PACK PO SCH (21:00)
[2020-01-23 22:36] LABS: Soluble Transf Receptor (sTfR) 6.6 mg/L (1.8 - 4.6)
== END 2020-01-22 15:38 | disposition home or self-care (01) ==
LOC: N.ED 21:07 → N.EDINP 21:07 → SUATTDRO 01-18 02:40 → N.TELEN 01-18 13:59
PROVIDERS: ADMIT Internal Medicine; ATTEND Hospitalist

== ENCOUNTER 2020-02-28 16:04 | Observation (INO) ==
[2020-02-28] MEDS ORDERED: ALBUTEROL/IPRATROPIUM 3 ML NEB RESP TX STA (17:47)
[2020-02-28] MEDS ORDERED: FUROSEMIDE 20 MG/2 ML VIAL IV STA (17:47)
[2020-02-28 18:32] LABS: INR 1.2; Partial Thromboplastin Time 24.6 SECS (23.9-33.8)
[2020-02-28 18:47] LABS: Alanine Aminotransferase 38 U/L (13-56); Albumin 3.5 G/DL (3.4-5.0); Alkaline Phosphatase 113 U/L (45-117); Aspartate Amino Transferase 33 U/L (0-37); Blood Urea Nitrogen 15 MG/DL (7-18); Calcium 9.1 MG/DL (8.5-10.1); Estimated Glom Filtration Rate 154 ML/MIN; Glucose 87 MG/DL (74-106); Osmolality,Calculated 274.7 MOS/KG (273-304); Troponin I < 0.015 NG/ML (0.00-0.045)
[2020-02-28 19:42] LABS: Bacteria,Urine Occasional /HPF (Few); Bilirubin,Urine Negative (Negative); Blood, Urine Negative (Negative); Glucose,Urine (UA) Negative (Negative); Ketones,Urine Negative (Negative); Mucus,Urine Occasional /LPF (Occasional); Nitrite,Urine Negative (Negative); Protein,Urine 30 MG/DL; Squamous Epithelial Cell,Urine Occasional /HPF (0-10); Urine Appearance CLOUDY (Clear); Urine Color Yellow (Yellow); Urine Specific Gravity 1.011 (1.001-1.035); Urine Urobilinogen < 2.0 EU/DL (0.2-1.0); WBC,Urine 1 /HPF (0-6)
[2020-02-28 23:23] LABS: Basophils # 0.1 10*3/uL (0.0-0.2); Basophils % 0.7 % (0.0-0.8); Eosinophils # 0.1 10*3/uL (0.0-0.87); Eosinophils % 1.2 % (0.00-10.9); Hematocrit 38.5 VOL% (35.7-47.0); Hemoglobin 11.6 GM/DL (12.0-16.0); Lymphocytes # 2.9 10*3/uL (1.4-4.0); Lymphocytes % 37.9 % (21.3-54.2); Mean Corpuscular HGB Conc 30.1 GM/DL (32-36); Mean Corpuscular Volume 77.9 FL (87-102); Mean Platelet Volume 9.4 FL (9.6-12.0); Monocytes % 8.5 % (1.7-12.7); Neutrophils % 51.7 % (38.7-73.9); Platelet Count 372 T/CUMM (130-400); Red Blood Count 4.94 MC/CUMM (3.8-5.5); White Blood Count 7.7 T/CUMM (4-12)
[2020-02-29] MEDS ORDERED: ONDANSETRON 4 MG/2 ML VIAL IV PRN (00:19)
[2020-02-29] MEDS ORDERED: GLUCAGON 1 MG VIAL IM PRN (00:19)
[2020-02-29] MEDS ORDERED: DEXTROSE 50% 25 GM/50 ML VIAL IV PRN (00:19)
[2020-02-29] MEDS ORDERED: DEXAMETHASONE 4 MG/1 ML VIAL IV STA (00:26)
[2020-02-29] MEDS: ALBUTEROL/IPRATROPIUM 3 ML NEB RESP TX SCH ×4 (02:12→20:27)
[2020-02-29] MEDS: hydrALAZINE 20 MG/1 ML VIAL IV PRN ×2 (02:38→14:26)
[2020-02-29] MEDS: ACETAMINOPHEN 325 MG TABLET PO PRN ×5 (04:57→23:47)
[2020-02-29 07:32] LABS: Basophils % 0.3 % (0.0-0.8); Hematocrit 36.2 VOL% (35.7-47.0); Hemoglobin 10.8 GM/DL (12.0-16.0); Immature Granulocytes % 0.3 %; Immature Granulocytes Absolute 0.02 #; Lymphocytes # 0.8 10*3/uL (1.4-4.0); Lymphocytes % 11.8 % (21.3-54.2); Mean Corpuscular HGB Conc 29.8 GM/DL (32-36); Mean Corpuscular Volume 79.6 FL (87-102); Mean Platelet Volume 8.2 FL (9.6-12.0); Monocytes % 1.9 % (1.7-12.7); Neutrophils % 85.7 % (38.7-73.9); Platelet Count 340 T/CUMM (130-400); Red Blood Count 4.55 MC/CUMM (3.8-5.5); Red Cell Distribution Width 20.8 % (9.3-17.3); White Blood Count 6.5 T/CUMM (4-12)
[2020-02-29 07:51] LABS: Osmolality,Calculated 273.8 MOS/KG (273-304)
[2020-02-29] MEDS: INSULIN LISPRO 100 UNIT/ML SUBCUT SCH ×4 (07:55→21:19)
[2020-02-29 07:58] LABS: Risk Ratio 4.12; Thyroid Stimulating Hormone 0.506 uIU/ml (0.358-3.74); VLDL CHOLESTEROL 10.4 MG/DL
[2020-02-29] MEDS ORDERED: FUROSEMIDE 40 MG/4 ML VIAL IV SCH (08:00)
[2020-02-29] MEDS ORDERED: FUROSEMIDE 40 MG TABLET PO SCH (08:00)
[2020-02-29] MEDS ORDERED: carvediloL 3.125 MG TABLET PO SCH (08:00)
[2020-02-29] MEDS: MAGNESIUM CHLORIDE 64 MG TABLET PO SCH (08:36)
[2020-02-29] MEDS: DOCUSATE SODIUM 100 MG CAPSULE PO SCH ×2 (08:36→21:16)
[2020-02-29] MEDS: POTASSIUM CHLORIDE 20 MEQ TABLET PO SCH (08:36)
[2020-02-29] MEDS: APIXABAN 5 MG TABLET PO SCH ×2 (08:36→21:16)
[2020-02-29] MEDS: CHOLECALCIFEROL 1,000 UNIT TABLET PO SCH (08:36)
[2020-02-29] MEDS: PANTOPRAZOLE 40 MG TABLET PO SCH (08:36)
[2020-02-29] MEDS ORDERED: metOLazone 2.5 MG TABLET PO SCH (09:00)
[2020-02-29] MEDS ORDERED: LOSARTAN 25 MG TABLET PO SCH (09:00)
[2020-02-29] MEDS ORDERED: methylPREDNISolone SOD SUC 40 MG/1 ML VIAL IV SCH (09:00)
[2020-02-29] MEDS: FUROSEMIDE 40 MG/4 ML VIAL IV SCH ×2 (12:11→16:50)
[2020-02-29 12:34] LABS: Barbiturates Screen,Urine Negative (Negative); Benzodiazepines Screen,Urine Negative (Negative); Cannabinoid Screen,Urine Negative (Negative); Opiate Screen,Urine Negative (Negative); Phencyclidine Screen,Urine Negative (Negative)
[2020-02-29] MEDS: carvediloL 6.25 MG TABLET PO SCH (21:16)
[2020-02-29] MEDS: SACUBITRIL/VALSARTAN 49-51 MG TABLET PO SCH (21:16)
[2020-03-01] MEDS: ALBUTEROL/IPRATROPIUM 3 ML NEB RESP TX SCH ×4 (00:25→19:15)
[2020-03-01 02:35] LABS: Basophils % 0.1 % (0.0-0.8); Hematocrit 34.4 VOL% (35.7-47.0); Hemoglobin 10.3 GM/DL (12.0-16.0); Immature Granulocytes % 0.5 %; Immature Granulocytes Absolute 0.05 #; Lymphocytes # 1.3 10*3/uL (1.4-4.0); Lymphocytes % 11.6 % (21.3-54.2); Mean Corpuscular HGB Conc 29.9 GM/DL (32-36); Mean Corpuscular Volume 77.3 FL (87-102); Monocytes % 7.4 % (1.7-12.7); Neutrophils % 80.4 % (38.7-73.9); Platelet Count 362 T/CUMM (130-400); Red Blood Count 4.45 MC/CUMM (3.8-5.5); Red Cell Distribution Width 20.3 % (9.3-17.3); White Blood Count 11.1 T/CUMM (4-12)
[2020-03-01 02:52] LABS: Calcium 9.3 MG/DL (8.5-10.1); Osmolality,Calculated 284.4 MOS/KG (273-304)
[2020-03-01] MEDS: INSULIN LISPRO 100 UNIT/ML SUBCUT SCH ×3 (08:36→16:18)
[2020-03-01] MEDS ORDERED: predniSONE 20 MG TABLET PO SCH (09:00)
[2020-03-01] MEDS: DOCUSATE SODIUM 100 MG CAPSULE PO SCH (09:36)
[2020-03-01] MEDS: PANTOPRAZOLE 40 MG TABLET PO SCH (09:36)
[2020-03-01] MEDS: SACUBITRIL/VALSARTAN 49-51 MG TABLET PO SCH (09:37)
[2020-03-01] MEDS: CHOLECALCIFEROL 1,000 UNIT TABLET PO SCH (09:37)
[2020-03-01] MEDS: POTASSIUM CHLORIDE 20 MEQ TABLET PO SCH (09:37)
[2020-03-01] MEDS: MAGNESIUM CHLORIDE 64 MG TABLET PO SCH (09:37)
[2020-03-01] MEDS: ACETAMINOPHEN 325 MG TABLET PO PRN (09:38)
[2020-03-01] MEDS: carvediloL 6.25 MG TABLET PO SCH (09:39)
[2020-03-01] MEDS: APIXABAN 5 MG TABLET PO SCH (09:39)
[2020-03-01] MEDS: FUROSEMIDE 40 MG/4 ML VIAL IV SCH ×2 (09:39→16:17)
[2020-03-01 20:07] VITALS: BP 117/63
== END 2020-03-01 20:46 | disposition home or self-care (01) ==
LOC: N.EDINP 16:04 → N.ED 16:04 → N.ICU 02-29 00:59 → N.TELES 02-29 14:14
PROVIDERS: ADMIT Internal Medicine; ATTEND Internal Medicine

== ENCOUNTER 2020-03-18 19:54 | Inpatient (IN) ==
[2020-03-18] MEDS ORDERED: FUROSEMIDE 40 MG/4 ML VIAL IV STA (20:25)
[2020-03-18 20:39] LABS: Basophils % 0.7 % (0.0-0.8); Eosinophils # 0.1 10*3/uL (0.0-0.87); Eosinophils % 1.3 % (0.00-10.9); Hematocrit 36.9 VOL% (35.7-47.0); Immature Granulocytes % 0.2 %; Immature Granulocytes Absolute 0.01 #; Lymphocytes # 2.5 10*3/uL (1.4-4.0); Lymphocytes % 44.3 % (21.3-54.2); Mean Corpuscular HGB Conc 29.8 GM/DL (32-36); Mean Platelet Volume 8.9 FL (9.6-12.0); Monocytes % 7.4 % (1.7-12.7); Neutrophils % 46.1 % (38.7-73.9); Platelet Count 309 T/CUMM (130-400); Red Blood Count 4.67 MC/CUMM (3.8-5.5); Red Cell Distribution Width 20.3 % (9.3-17.3); White Blood Count 5.6 T/CUMM (4-12)
[2020-03-18] MEDS: NITROGLYCERIN DRIP 50 MG/250 ML BOTTLE IV SCH (20:42)
[2020-03-18] MEDS ORDERED: METOPROLOL TARTRATE 5 MG/5 ML VIAL IV STA (20:56)
[2020-03-18 20:58] LABS: Albumin 3.4 G/DL (3.4-5.0); Bilirubin,Total 0.6 MG/DL (0.2-1.0); Calcium 8.8 MG/DL (8.5-10.1); Osmolality,Calculated 280.3 MOS/KG (273-304); Total Protein 6.9 G/DL (6.4-8.3)
[2020-03-18 21:04] LABS: Eosinophils 1 % (0-10); Lymphocytes 61 % (20-55); Segmented Neutrophils 37 % (50-85); Total Cells Counted 100
[2020-03-18 21:05] LABS: Atypical Lymphocytes 1+; Macrocytosis 2+; Polychromasia 1+
[2020-03-18 21:06] LABS: Platelet Estimate Adequate
[2020-03-18] MEDS ORDERED: NITROGLYCERIN 2% OINT 1 INCH/GM PACK TOP STA (21:10)
[2020-03-18] MEDS ORDERED: guaiFENesin/DM ER 600-30 MG TABLET PO PRN (22:29)
[2020-03-18] MEDS ORDERED: GLUCAGON 1 MG VIAL IM PRN (22:29)
[2020-03-18] MEDS ORDERED: ONDANSETRON 4 MG/2 ML VIAL IV PRN (22:29)
[2020-03-18] MEDS ORDERED: diphenhydrAMINE CAP 25 MG CAPSULE PO PRN (22:29)
[2020-03-18] MEDS ORDERED: DEXTROSE 50% 25 GM/50 ML VIAL IV PRN (22:29)
[2020-03-18] MEDS ORDERED: LABETALOL 20 MG/4 ML SYRINGE IV STA (22:38)
[2020-03-18] MEDS ORDERED: LABETALOL 20 MG/4 ML SYRINGE IV ONE (22:39)
[2020-03-18] MEDS ORDERED: carvediloL 3.125 MG TABLET PO STA (23:44)
[2020-03-18 23:50] LABS: Bilirubin,Urine Negative (Negative); Blood, Urine Large mg/dL (Negative); Glucose,Urine (UA) Negative (Negative); Ketones,Urine Negative (Negative); Mucus,Urine Occasional /LPF (Occasional); Nitrite,Urine Negative (Negative); Protein,Urine Negative; RBC,Urine 49 /HPF (0-4); Squamous Epithelial Cell,Urine Occasional /HPF (0-10); Urine Appearance CLEAR (Clear); Urine Color Straw (Yellow); Urine Specific Gravity 1.004 (1.001-1.035); Urine Urobilinogen < 2.0 EU/DL (0.2-1.0); WBC,Urine <1 /HPF (0-6)
[2020-03-19] MEDS: ALBUTEROL/IPRATROPIUM 3 ML NEB RESP TX SCH ×4 (00:32→20:56)
[2020-03-19] MEDS ORDERED: ALBUTEROL 2.5 MG/3 ML NEB RESP TX PRN (08:52)
[2020-03-19] MEDS: POTASSIUM CHLORIDE 20 MEQ TABLET PO SCH (09:58)
[2020-03-19] MEDS: MAGNESIUM CHLORIDE 64 MG TABLET PO SCH (09:58)
[2020-03-19] MEDS: DOCUSATE SODIUM 100 MG CAPSULE PO SCH ×2 (09:58→20:22)
[2020-03-19] MEDS: APIXABAN 5 MG TABLET PO SCH ×2 (09:58→20:22)
[2020-03-19] MEDS: FUROSEMIDE 40 MG/4 ML VIAL IV SCH ×2 (10:25→16:52)
[2020-03-19] MEDS ORDERED: carvediloL 3.125 MG TABLET ONE (11:24)
[2020-03-19] MEDS: SENNA 8.6 MG TABLET PO SCH ×2 (11:42→20:23)
[2020-03-19] MEDS: POLYETHYLENE GLYCOL POWDER 17 GM PACK PO SCH ×3 (11:42→20:22)
[2020-03-19] MEDS: carvediloL 6.25 MG TABLET PO SCH ×2 (11:42→20:23)
[2020-03-19] MEDS: hydrALAZINE 25 MG TABLET PO SCH ×2 (16:46→20:23)
[2020-03-19] MEDS: FLUTICASONE/SALMETEROL 250-50 DISKUS 14 DOSE INH SCH ×2 (16:46→20:23)
[2020-03-19] MEDS: ISOSORBIDE DINITRATE 10 MG TABLET PO SCH ×2 (16:46→20:22)
[2020-03-19] MEDS: metOLazone 5 MG TABLET PO SCH (16:46)
[2020-03-19] MEDS: MORPHINE 4 MG/1 ML VIAL IV PRN (20:30)
[2020-03-19] MEDS: NITROGLYCERIN DRIP 50 MG/250 ML BOTTLE IV SCH (20:47)
[2020-03-20] MEDS: ALBUTEROL/IPRATROPIUM 3 ML NEB RESP TX SCH ×4 (00:15→19:22)
[2020-03-20] MEDS: MORPHINE 4 MG/1 ML VIAL IV PRN ×4 (01:34→20:34)
[2020-03-20] MEDS: ACETAMINOPHEN 325 MG TABLET PO PRN ×2 (07:50→11:37)
[2020-03-20 08:07] LABS: Basophils % 0.7 % (0.0-0.8); Eosinophils # 0.2 10*3/uL (0.0-0.87); Eosinophils % 3.4 % (0.00-10.9); Hematocrit 34.5 VOL% (35.7-47.0); Hemoglobin 10.4 GM/DL (12.0-16.0); Immature Granulocytes % 0.2 %; Immature Granulocytes Absolute 0.01 #; Lymphocytes # 1.6 10*3/uL (1.4-4.0); Lymphocytes % 36.4 % (21.3-54.2); Mean Corpuscular HGB Conc 30.1 GM/DL (32-36); Mean Platelet Volume 9.1 FL (9.6-12.0); Monocytes % 7.2 % (1.7-12.7); Neutrophils % 52.1 % (38.7-73.9); Platelet Count 287 T/CUMM (130-400); Red Blood Count 4.31 MC/CUMM (3.8-5.5); White Blood Count 4.5 T/CUMM (4-12)
[2020-03-20 08:16] LABS: Calcium 8.6 MG/DL (8.5-10.1); Osmolality,Calculated 278.4 MOS/KG (273-304)
[2020-03-20] MEDS: POLYETHYLENE GLYCOL POWDER 17 GM PACK PO SCH ×3 (09:20→20:59)
[2020-03-20] MEDS: CHOLECALCIFEROL 1,000 UNIT TABLET PO SCH (09:20)
[2020-03-20] MEDS: hydrALAZINE 25 MG TABLET PO SCH ×3 (09:21→20:36)
[2020-03-20] MEDS: POTASSIUM CHLORIDE 20 MEQ TABLET PO SCH (09:21)
[2020-03-20] MEDS: MAGNESIUM CHLORIDE 64 MG TABLET PO SCH (09:21)
[2020-03-20] MEDS: ISOSORBIDE DINITRATE 10 MG TABLET PO SCH ×3 (09:21→20:36)
[2020-03-20] MEDS: SENNA 8.6 MG TABLET PO SCH ×2 (09:21→20:36)
[2020-03-20] MEDS: metOLazone 5 MG TABLET PO SCH (09:22)
[2020-03-20] MEDS: carvediloL 6.25 MG TABLET PO SCH ×2 (09:22→20:36)
[2020-03-20] MEDS: APIXABAN 5 MG TABLET PO SCH ×2 (09:22→20:36)
[2020-03-20] MEDS: FUROSEMIDE 40 MG/4 ML VIAL IV SCH ×2 (09:25→16:30)
[2020-03-20] MEDS: FLUTICASONE/SALMETEROL 250-50 DISKUS 14 DOSE INH SCH ×2 (09:25→20:59)
[2020-03-20] MEDS: DOCUSATE SODIUM 100 MG CAPSULE PO SCH ×2 (09:33→20:36)
[2020-03-20] MEDS ORDERED: BISACODYL 5 MG TABLET PO ONE (18:04)
[2020-03-20] MEDS: NITROGLYCERIN DRIP 50 MG/250 ML BOTTLE IV SCH (19:35)
[2020-03-20] MEDS ORDERED: POTASSIUM CHLORIDE 20 MEQ TABLET PO SCH (21:00)
[2020-03-21] MEDS: MORPHINE 4 MG/1 ML VIAL IV PRN ×2 (01:42→09:21)
[2020-03-21 05:45] LABS: Basophils % 0.5 % (0.0-0.8); Eosinophils # 0.1 10*3/uL (0.0-0.87); Hematocrit 35.2 VOL% (35.7-47.0); Hemoglobin 10.8 GM/DL (12.0-16.0); Immature Granulocytes % 0.3 %; Immature Granulocytes Absolute 0.02 #; Lymphocytes # 1.9 10*3/uL (1.4-4.0); Lymphocytes % 32.6 % (21.3-54.2); Mean Corpuscular HGB Conc 30.7 GM/DL (32-36); Mean Corpuscular Volume 78.4 FL (87-102); Mean Platelet Volume 8.9 FL (9.6-12.0); Monocytes % 5.5 % (1.7-12.7); Neutrophils % 59.1 % (38.7-73.9); Platelet Count 325 T/CUMM (130-400); Red Blood Count 4.49 MC/CUMM (3.8-5.5); Red Cell Distribution Width 19.5 % (9.3-17.3)
[2020-03-21 06:04] LABS: Eosinophils 6 % (0-10); Hypochromasia 1+; Lymphocytes 34 % (20-55); Microcytosis 1+; Platelet Estimate Adequate; Segmented Neutrophils 53 % (50-85); Total Cells Counted 100
[2020-03-21 06:23] LABS: Calcium 9.6 MG/DL (8.5-10.1); Osmolality,Calculated 272.8 MOS/KG (273-304)
[2020-03-21] MEDS: ALBUTEROL/IPRATROPIUM 3 ML NEB RESP TX SCH ×3 (07:02→22:36)
[2020-03-21] MEDS: ISOSORBIDE DINITRATE 10 MG TABLET PO SCH ×3 (09:04→20:29)
[2020-03-21] MEDS: CHOLECALCIFEROL 1,000 UNIT TABLET PO SCH (09:04)
[2020-03-21] MEDS: metOLazone 5 MG TABLET PO SCH (09:04)
[2020-03-21] MEDS: carvediloL 6.25 MG TABLET PO SCH ×2 (09:04→20:29)
[2020-03-21] MEDS: MAGNESIUM CHLORIDE 64 MG TABLET PO SCH (09:04)
[2020-03-21] MEDS: APIXABAN 5 MG TABLET PO SCH ×2 (09:05→20:31)
[2020-03-21] MEDS: DOCUSATE SODIUM 100 MG CAPSULE PO SCH ×2 (09:05→20:29)
[2020-03-21] MEDS: SENNA 8.6 MG TABLET PO SCH ×2 (09:05→20:29)
[2020-03-21] MEDS: POTASSIUM CHLORIDE 20 MEQ TABLET PO SCH ×3 (09:05→20:29)
[2020-03-21] MEDS: hydrALAZINE 25 MG TABLET PO SCH ×3 (09:05→20:29)
[2020-03-21] MEDS: SACUBITRIL/VALSARTAN 49-51 MG TABLET PO SCH (09:05)
[2020-03-21] MEDS: FLUTICASONE/SALMETEROL 250-50 DISKUS 14 DOSE INH SCH ×2 (09:09→20:31)
[2020-03-21] MEDS: POLYETHYLENE GLYCOL POWDER 17 GM PACK PO SCH ×3 (09:15→20:29)
[2020-03-21] MEDS: SPIRONOLACTONE 25 MG TABLET PO SCH (09:15)
[2020-03-21] MEDS: FUROSEMIDE 40 MG/4 ML VIAL IV SCH ×2 (09:16→16:18)
[2020-03-21] MEDS ORDERED: KETOROLAC 15 MG/1 ML VIAL IV ONE (14:39)
[2020-03-21] MEDS: LINACLOTIDE 145 MCG CAPSULE PO SCH (15:49)
[2020-03-21] MEDS: NITROGLYCERIN DRIP 50 MG/250 ML BOTTLE IV SCH (20:33)
[2020-03-21] MEDS: ACETAMINOPHEN 325 MG TABLET PO PRN (21:38)
[2020-03-22] MEDS: ALBUTEROL/IPRATROPIUM 3 ML NEB RESP TX SCH ×5 (02:39→19:00)
[2020-03-22] MEDS: MORPHINE 4 MG/1 ML VIAL IV PRN ×2 (03:12→10:09)
[2020-03-22] MEDS ORDERED: ALBUTEROL/IPRATROPIUM 3 ML NEB RESP TX ONE ×3 (07:03→18:34)
[2020-03-22 09:45] LABS: Basophils % 0.7 % (0.0-0.8); Eosinophils # 0.1 10*3/uL (0.0-0.87); Eosinophils % 1.3 % (0.00-10.9); Hematocrit 37.6 VOL% (35.7-47.0); Hemoglobin 11.6 GM/DL (12.0-16.0); Immature Granulocytes % 0.4 %; Immature Granulocytes Absolute 0.02 #; Lymphocytes # 1.7 10*3/uL (1.4-4.0); Lymphocytes % 30.6 % (21.3-54.2); Mean Corpuscular HGB Conc 30.9 GM/DL (32-36); Mean Corpuscular Volume 77.2 FL (87-102); Mean Platelet Volume 8.4 FL (9.6-12.0); Monocytes % 7.3 % (1.7-12.7); Neutrophils % 59.7 % (38.7-73.9); Platelet Count 357 T/CUMM (130-400); Red Blood Count 4.87 MC/CUMM (3.8-5.5); Red Cell Distribution Width 19.4 % (9.3-17.3); White Blood Count 5.6 T/CUMM (4-12)
[2020-03-22] MEDS: POLYETHYLENE GLYCOL POWDER 17 GM PACK PO SCH ×3 (09:56→21:06)
[2020-03-22] MEDS: SENNA 8.6 MG TABLET PO SCH ×2 (09:57→21:02)
[2020-03-22] MEDS: SPIRONOLACTONE 25 MG TABLET PO SCH (09:57)
[2020-03-22] MEDS: POTASSIUM CHLORIDE 20 MEQ TABLET PO SCH ×2 (09:57→17:28)
[2020-03-22] MEDS: hydrALAZINE 25 MG TABLET PO SCH ×3 (09:57→21:02)
[2020-03-22] MEDS: MAGNESIUM CHLORIDE 64 MG TABLET PO SCH (09:58)
[2020-03-22] MEDS: CHOLECALCIFEROL 1,000 UNIT TABLET PO SCH (09:58)
[2020-03-22] MEDS: DOCUSATE SODIUM 100 MG CAPSULE PO SCH ×2 (09:59→21:02)
[2020-03-22] MEDS: metOLazone 5 MG TABLET PO SCH (09:59)
[2020-03-22] MEDS: APIXABAN 5 MG TABLET PO SCH ×2 (09:59→21:02)
[2020-03-22] MEDS: LINACLOTIDE 145 MCG CAPSULE PO SCH (10:00)
[2020-03-22] MEDS: SACUBITRIL/VALSARTAN 49-51 MG TABLET PO SCH ×2 (10:00→21:01)
[2020-03-22] MEDS: carvediloL 6.25 MG TABLET PO SCH ×2 (10:00→21:02)
[2020-03-22 10:06] LABS: Calcium 9.5 MG/DL (8.5-10.1); Osmolality,Calculated 272.1 MOS/KG (273-304)
[2020-03-22] MEDS: FUROSEMIDE 40 MG/4 ML VIAL IV SCH ×2 (10:06→16:41)
[2020-03-22] MEDS: ISOSORBIDE DINITRATE 10 MG TABLET PO SCH ×3 (10:14→21:02)
[2020-03-22] MEDS: FLUTICASONE/SALMETEROL 250-50 DISKUS 14 DOSE INH SCH ×2 (10:14→21:03)
[2020-03-22 10:40] LABS: Atypical Lymphocytes Few; Lymphocytes 34 % (20-55); Segmented Neutrophils 58 % (50-85); Total Cells Counted 100
[2020-03-22 10:41] LABS: Hypochromasia 2+; Microcytosis 1+; Ovalocytes Slight
[2020-03-22 10:42] LABS: Platelet Estimate Normal
[2020-03-22] MEDS ORDERED: POLYETHYLENE GLYCOL POWDER 255 GM BOTTLE PO ONE (18:00)
[2020-03-22] MEDS: LACTULOSE 20 GM/30 ML UDCUP PO SCH (21:02)
[2020-03-23] MEDS: ALBUTEROL/IPRATROPIUM 3 ML NEB RESP TX SCH ×4 (01:40→18:59)
[2020-03-23 07:47] LABS: Calcium 9.2 MG/DL (8.5-10.1); Osmolality,Calculated 273.2 MOS/KG (273-304)
[2020-03-23] MEDS: CHOLECALCIFEROL 1,000 UNIT TABLET PO SCH (09:46)
[2020-03-23] MEDS: ISOSORBIDE DINITRATE 10 MG TABLET PO SCH ×2 (09:47→16:36)
[2020-03-23] MEDS: metOLazone 5 MG TABLET PO SCH (09:47)
[2020-03-23] MEDS: DOCUSATE SODIUM 100 MG CAPSULE PO SCH ×2 (09:47→20:56)
[2020-03-23] MEDS: APIXABAN 5 MG TABLET PO SCH ×2 (09:47→20:57)
[2020-03-23] MEDS: hydrALAZINE 25 MG TABLET PO SCH ×2 (09:49→16:36)
[2020-03-23] MEDS: POTASSIUM CHLORIDE 20 MEQ TABLET PO SCH (09:49)
[2020-03-23] MEDS: SACUBITRIL/VALSARTAN 49-51 MG TABLET PO SCH ×2 (09:49→20:56)
[2020-03-23] MEDS: carvediloL 6.25 MG TABLET PO SCH (09:49)
[2020-03-23] MEDS: SPIRONOLACTONE 25 MG TABLET PO SCH (09:49)
[2020-03-23] MEDS: SENNA 8.6 MG TABLET PO SCH ×2 (09:50→20:56)
[2020-03-23] MEDS: MAGNESIUM CHLORIDE 64 MG TABLET PO SCH (09:50)
[2020-03-23] MEDS: LINACLOTIDE 145 MCG CAPSULE PO SCH (09:51)
[2020-03-23] MEDS: POLYETHYLENE GLYCOL POWDER 17 GM PACK PO SCH ×3 (09:52→20:55)
[2020-03-23] MEDS: LACTULOSE 20 GM/30 ML UDCUP PO SCH ×2 (09:53→20:56)
[2020-03-23] MEDS: FUROSEMIDE 40 MG/4 ML VIAL IV SCH ×2 (09:54→21:48)
[2020-03-23] MEDS: FLUTICASONE/SALMETEROL 250-50 DISKUS 14 DOSE INH SCH ×2 (10:01→20:58)
[2020-03-23 18:03] LABS: Basophils # 0.1 10*3/uL (0.0-0.2); Basophils % 0.7 % (0.0-0.8); Eosinophils # 0.2 10*3/uL (0.0-0.87); Eosinophils % 2.1 % (0.00-10.9); Hematocrit 44.3 VOL% (35.7-47.0); Hemoglobin 13.1 GM/DL (12.0-16.0); Immature Granulocytes % 0.3 %; Immature Granulocytes Absolute 0.02 #; Lymphocytes # 1.7 10*3/uL (1.4-4.0); Lymphocytes % 23.5 % (21.3-54.2); Mean Corpuscular HGB Conc 29.6 GM/DL (32-36); Mean Corpuscular Volume 80.8 FL (87-102); Mean Platelet Volume 9.3 FL (9.6-12.0); Monocytes % 11.4 % (1.7-12.7); NRBC # 0.04 10*3/uL; Platelet Count 293 T/CUMM (130-400); Red Blood Count 5.48 MC/CUMM (3.8-5.5); Red Cell Distribution Width 20.2 % (9.3-17.3); White Blood Count 7.2 T/CUMM (4-12)
[2020-03-23] MEDS ORDERED: ALBUTEROL/IPRATROPIUM 3 ML NEB RESP TX ONE (18:41)
[2020-03-23] MEDS: carvediloL 12.5 MG TABLET PO SCH (20:57)
[2020-03-24] MEDS: ALBUTEROL/IPRATROPIUM 3 ML NEB RESP TX SCH ×4 (05:36→19:14)
[2020-03-24] MEDS: MORPHINE 4 MG/1 ML VIAL IV PRN (08:27)
[2020-03-24 08:30] LABS: Basophils % 0.9 % (0.0-0.8); Eosinophils # 0.2 10*3/uL (0.0-0.87); Eosinophils % 5.2 % (0.00-10.9); Hematocrit 40.4 VOL% (35.7-47.0); Hemoglobin 12.2 GM/DL (12.0-16.0); Immature Granulocytes % 0.2 %; Immature Granulocytes Absolute 0.01 #; Lymphocytes # 1.4 10*3/uL (1.4-4.0); Lymphocytes % 33.2 % (21.3-54.2); Mean Corpuscular HGB Conc 30.2 GM/DL (32-36); Mean Corpuscular Volume 78.9 FL (87-102); Mean Platelet Volume 8.3 FL (9.6-12.0); Monocytes % 14.6 % (1.7-12.7); Neutrophils % 45.9 % (38.7-73.9); Platelet Count 334 T/CUMM (130-400); Red Blood Count 5.12 MC/CUMM (3.8-5.5); Red Cell Distribution Width 19.7 % (9.3-17.3); White Blood Count 4.3 T/CUMM (4-12)
[2020-03-24 08:46] LABS: Calcium 8.8 MG/DL (8.5-10.1); Osmolality,Calculated 280.8 MOS/KG (273-304)
[2020-03-24 09:01] LABS: Atypical Lymphocytes Few; Band Neutrophils 1 % (0-10); Eosinophils 3 % (0-10); Hypochromasia 2+; Lymphocytes 33 % (20-55); Microcytosis 1+; Segmented Neutrophils 47 % (50-85); Total Cells Counted 100
[2020-03-24 09:02] LABS: Ovalocytes Slight; Platelet Estimate Normal
[2020-03-24] MEDS: metOLazone 5 MG TABLET PO SCH (10:00)
[2020-03-24] MEDS: DOCUSATE SODIUM 100 MG CAPSULE PO SCH ×2 (10:00→21:57)
[2020-03-24] MEDS: MAGNESIUM CHLORIDE 64 MG TABLET PO SCH (10:00)
[2020-03-24] MEDS: SPIRONOLACTONE 25 MG TABLET PO SCH (10:01)
[2020-03-24] MEDS: CHOLECALCIFEROL 1,000 UNIT TABLET PO SCH (10:01)
[2020-03-24] MEDS: APIXABAN 5 MG TABLET PO SCH ×2 (10:01→21:56)
[2020-03-24] MEDS: POTASSIUM CHLORIDE 20 MEQ TABLET PO SCH (10:01)
[2020-03-24] MEDS: LACTULOSE 20 GM/30 ML UDCUP PO SCH ×2 (10:01→21:55)
[2020-03-24] MEDS: carvediloL 12.5 MG TABLET PO SCH ×2 (10:01→21:57)
[2020-03-24] MEDS: FUROSEMIDE 40 MG/4 ML VIAL IV SCH ×3 (10:02→15:23)
[2020-03-24] MEDS: FLUTICASONE/SALMETEROL 250-50 DISKUS 14 DOSE INH SCH ×2 (10:02→21:57)
[2020-03-24] MEDS: POLYETHYLENE GLYCOL POWDER 17 GM PACK PO SCH ×3 (10:02→21:30)
[2020-03-24] MEDS: NICOTINE 21 MG/24 HR PATCH TRANSDERM PRN (10:02)
[2020-03-24] MEDS: SENNA 8.6 MG TABLET PO SCH ×2 (10:35→21:56)
[2020-03-24] MEDS: SACUBITRIL/VALSARTAN 49-51 MG TABLET PO SCH ×2 (10:35→21:56)
[2020-03-24] MEDS: LINACLOTIDE 145 MCG CAPSULE PO SCH (10:35)
[2020-03-24] MEDS: ACETAMINOPHEN 325 MG TABLET PO PRN (17:37)
[2020-03-24 19:01] LABS: Troponin I < 0.015 NG/ML (0.00-0.045)
[2020-03-24] MEDS: ISOSORBIDE DINITRATE 20 MG TABLET PO SCH (21:57)
[2020-03-25] MEDS: ALBUTEROL/IPRATROPIUM 3 ML NEB RESP TX SCH ×4 (00:02→19:18)
[2020-03-25 08:18] LABS: Calcium 8.4 MG/DL (8.5-10.1); Osmolality,Calculated 281.8 MOS/KG (273-304)
[2020-03-25 08:23] LABS: Basophils % 0.7 % (0.0-0.8); Eosinophils # 0.1 10*3/uL (0.0-0.87); Eosinophils % 2.9 % (0.00-10.9); Hematocrit 36.5 VOL% (35.7-47.0); Immature Granulocytes % 0.2 %; Immature Granulocytes Absolute 0.01 #; Lymphocytes # 1.2 10*3/uL (1.4-4.0); Lymphocytes % 27.7 % (21.3-54.2); Mean Corpuscular HGB Conc 29.6 GM/DL (32-36); Mean Corpuscular Volume 81.3 FL (87-102); Mean Platelet Volume 9.2 FL (9.6-12.0); Monocytes % 14.3 % (1.7-12.7); Neutrophils % 54.2 % (38.7-73.9); Platelet Count 313 T/CUMM (130-400); Red Blood Count 4.49 MC/CUMM (3.8-5.5); Red Cell Distribution Width 19.5 % (9.3-17.3); White Blood Count 4.5 T/CUMM (4-12)
[2020-03-25 08:25] LABS: Hemoglobin 10.8 GM/DL (12.0-16.0)
[2020-03-25] MEDS: APIXABAN 5 MG TABLET PO SCH ×2 (09:23→21:15)
[2020-03-25] MEDS: SENNA 8.6 MG TABLET PO SCH ×2 (09:23→21:14)
[2020-03-25] MEDS: LINACLOTIDE 145 MCG CAPSULE PO SCH (09:23)
[2020-03-25] MEDS: POTASSIUM CHLORIDE 20 MEQ TABLET PO SCH (09:23)
[2020-03-25] MEDS: ISOSORBIDE DINITRATE 20 MG TABLET PO SCH ×2 (09:24→21:14)
[2020-03-25] MEDS: metOLazone 5 MG TABLET PO SCH (09:24)
[2020-03-25] MEDS: CHOLECALCIFEROL 1,000 UNIT TABLET PO SCH (09:24)
[2020-03-25] MEDS: MAGNESIUM CHLORIDE 64 MG TABLET PO SCH (09:24)
[2020-03-25] MEDS: DOCUSATE SODIUM 100 MG CAPSULE PO SCH ×2 (09:24→21:15)
[2020-03-25] MEDS: FUROSEMIDE 40 MG/4 ML VIAL IV SCH (09:25)
[2020-03-25] MEDS: POLYETHYLENE GLYCOL POWDER 17 GM PACK PO SCH ×3 (09:25→22:15)
[2020-03-25] MEDS: LACTULOSE 20 GM/30 ML UDCUP PO SCH ×2 (09:25→21:13)
[2020-03-25] MEDS: SPIRONOLACTONE 25 MG TABLET PO SCH (09:25)
[2020-03-25] MEDS: FLUTICASONE/SALMETEROL 250-50 DISKUS 14 DOSE INH SCH ×2 (09:25→21:15)
[2020-03-25] MEDS: NICOTINE 21 MG/24 HR PATCH TRANSDERM PRN (09:27)
[2020-03-25] MEDS: carvediloL 12.5 MG TABLET PO SCH ×2 (09:58→21:14)
[2020-03-25] MEDS: SACUBITRIL/VALSARTAN 49-51 MG TABLET PO SCH ×2 (09:58→21:13)
[2020-03-25] MEDS: ACETAMINOPHEN 325 MG TABLET PO PRN ×2 (09:58→18:40)
[2020-03-25] MEDS: FUROSEMIDE 20 MG TABLET PO SCH (15:33)
[2020-03-26] MEDS: ALBUTEROL/IPRATROPIUM 3 ML NEB RESP TX SCH ×4 (02:48→19:48)
[2020-03-26] MEDS: metOLazone 5 MG TABLET PO SCH (09:43)
[2020-03-26] MEDS: carvediloL 12.5 MG TABLET PO SCH ×2 (09:44→21:41)
[2020-03-26] MEDS: DOCUSATE SODIUM 100 MG CAPSULE PO SCH ×2 (09:44→21:36)
[2020-03-26] MEDS: CHOLECALCIFEROL 1,000 UNIT TABLET PO SCH (09:45)
[2020-03-26] MEDS: POTASSIUM CHLORIDE 20 MEQ TABLET PO SCH (09:45)
[2020-03-26] MEDS: SENNA 8.6 MG TABLET PO SCH ×2 (09:46→21:36)
[2020-03-26] MEDS: MAGNESIUM CHLORIDE 64 MG TABLET PO SCH (09:46)
[2020-03-26] MEDS: APIXABAN 5 MG TABLET PO SCH ×2 (09:46→21:41)
[2020-03-26] MEDS: SPIRONOLACTONE 25 MG TABLET PO SCH (09:47)
[2020-03-26] MEDS: FUROSEMIDE 20 MG TABLET PO SCH ×2 (09:48→17:53)
[2020-03-26] MEDS: LINACLOTIDE 145 MCG CAPSULE PO SCH (09:49)
[2020-03-26] MEDS: ISOSORBIDE DINITRATE 20 MG TABLET PO SCH ×2 (09:49→21:41)
[2020-03-26] MEDS: POLYETHYLENE GLYCOL POWDER 17 GM PACK PO SCH ×3 (09:50→21:36)
[2020-03-26] MEDS: LACTULOSE 20 GM/30 ML UDCUP PO SCH ×2 (09:50→21:36)
[2020-03-26] MEDS: ACETAMINOPHEN 325 MG TABLET PO PRN (10:03)
[2020-03-26] MEDS: SACUBITRIL/VALSARTAN 49-51 MG TABLET PO SCH ×2 (10:23→21:41)
[2020-03-26 14:33] LABS: Calcium 9.3 MG/DL (8.5-10.1); Osmolality,Calculated 276.2 MOS/KG (273-304)
[2020-03-26] MEDS: FLUTICASONE/SALMETEROL 250-50 DISKUS 14 DOSE INH SCH ×2 (14:55→21:41)
[2020-03-26] MEDS: NICOTINE 21 MG/24 HR PATCH TRANSDERM PRN (21:48)
[2020-03-27] MEDS: ALBUTEROL/IPRATROPIUM 3 ML NEB RESP TX SCH ×4 (02:20→19:23)
[2020-03-27] MEDS: metOLazone 5 MG TABLET PO SCH (10:00)
[2020-03-27] MEDS: CHOLECALCIFEROL 1,000 UNIT TABLET PO SCH (10:01)
[2020-03-27] MEDS: SENNA 8.6 MG TABLET PO SCH ×2 (10:02→21:26)
[2020-03-27] MEDS: DOCUSATE SODIUM 100 MG CAPSULE PO SCH ×2 (10:02→21:24)
[2020-03-27] MEDS: carvediloL 12.5 MG TABLET PO SCH ×2 (10:03→21:24)
[2020-03-27] MEDS: ACETAMINOPHEN 325 MG TABLET PO PRN (10:04)
[2020-03-27] MEDS: POTASSIUM CHLORIDE 20 MEQ TABLET PO SCH (10:05)
[2020-03-27] MEDS: MAGNESIUM CHLORIDE 64 MG TABLET PO SCH (10:05)
[2020-03-27] MEDS: SACUBITRIL/VALSARTAN 49-51 MG TABLET PO SCH ×2 (10:06→21:24)
[2020-03-27] MEDS: SPIRONOLACTONE 25 MG TABLET PO SCH (10:07)
[2020-03-27] MEDS: ISOSORBIDE DINITRATE 20 MG TABLET PO SCH ×2 (10:07→21:24)
[2020-03-27] MEDS: FUROSEMIDE 20 MG TABLET PO SCH ×2 (10:08→17:15)
[2020-03-27] MEDS: APIXABAN 5 MG TABLET PO SCH ×2 (10:08→21:24)
[2020-03-27] MEDS: POLYETHYLENE GLYCOL POWDER 17 GM PACK PO SCH ×3 (10:10→21:26)
[2020-03-27] MEDS: LACTULOSE 20 GM/30 ML UDCUP PO SCH ×2 (10:10→21:24)
[2020-03-27] MEDS: LINACLOTIDE 145 MCG CAPSULE PO SCH (10:11)
[2020-03-27] MEDS: FLUTICASONE/SALMETEROL 250-50 DISKUS 14 DOSE INH SCH ×2 (10:12→22:12)
[2020-03-27 11:07] LABS: Basophils % 0.9 % (0.0-0.8); Eosinophils # 0.1 10*3/uL (0.0-0.87); Hematocrit 38.8 VOL% (35.7-47.0); Hemoglobin 11.7 GM/DL (12.0-16.0); Immature Granulocytes % 0.2 %; Immature Granulocytes Absolute 0.01 #; Lymphocytes % 46.7 % (21.3-54.2); Mean Corpuscular HGB Conc 30.2 GM/DL (32-36); Mean Corpuscular Volume 78.5 FL (87-102); Mean Platelet Volume 8.8 FL (9.6-12.0); Monocytes % 11.4 % (1.7-12.7); Neutrophils % 37.8 % (38.7-73.9); Platelet Count 373 T/CUMM (130-400); Red Blood Count 4.94 MC/CUMM (3.8-5.5); Red Cell Distribution Width 19.1 % (9.3-17.3); White Blood Count 4.4 T/CUMM (4-12)
[2020-03-27 11:23] LABS: Calcium 9.4 MG/DL (8.5-10.1)
[2020-03-27 11:29] LABS: Atypical Lymphocytes Few; Eosinophils 4 % (0-10); Hypochromasia 1+; Lymphocytes 45 % (20-55); Microcytosis Slight; Platelet Estimate Adequate; Segmented Neutrophils 34 % (50-85); Total Cells Counted 100
[2020-03-27 11:32] LABS: % Iron Saturation 23.8 % (18-50)
[2020-03-28] MEDS: ALBUTEROL/IPRATROPIUM 3 ML NEB RESP TX SCH ×2 (01:50→08:04)
[2020-03-28 06:43] LABS: Calcium 8.9 MG/DL (8.5-10.1)
[2020-03-28 06:59] LABS: Basophils # 0.1 10*3/uL (0.0-0.2); Basophils % 0.9 % (0.0-0.8); Eosinophils # 0.1 10*3/uL (0.0-0.87); Eosinophils % 2.6 % (0.00-10.9); Hematocrit 40.3 VOL% (35.7-47.0); Immature Granulocytes % 0.2 %; Immature Granulocytes Absolute 0.01 #; Lymphocytes # 2.4 10*3/uL (1.4-4.0); Lymphocytes % 44.8 % (21.3-54.2); Mean Corpuscular HGB Conc 29.8 GM/DL (32-36); Mean Corpuscular Volume 79.6 FL (87-102); Mean Platelet Volume 8.5 FL (9.6-12.0); Monocytes % 12.4 % (1.7-12.7); Neutrophils % 39.1 % (38.7-73.9); Platelet Count 348 T/CUMM (130-400); Red Blood Count 5.06 MC/CUMM (3.8-5.5); Red Cell Distribution Width 19.2 % (9.3-17.3); White Blood Count 5.3 T/CUMM (4-12)
[2020-03-28 07:04] LABS: Platelet Estimate Adequate
[2020-03-28 07:05] LABS: Hypochromasia 1+; Microcytosis Slight
[2020-03-28] MEDS: FLUTICASONE/SALMETEROL 250-50 DISKUS 14 DOSE INH SCH (09:34)
[2020-03-28] MEDS: NICOTINE 21 MG/24 HR PATCH TRANSDERM PRN (09:35)
[2020-03-28] MEDS: CHOLECALCIFEROL 1,000 UNIT TABLET PO SCH (09:35)
[2020-03-28] MEDS: MAGNESIUM CHLORIDE 64 MG TABLET PO SCH (09:35)
[2020-03-28] MEDS: POTASSIUM CHLORIDE 20 MEQ TABLET PO SCH (09:36)
[2020-03-28] MEDS: APIXABAN 5 MG TABLET PO SCH (09:36)
[2020-03-28] MEDS: SENNA 8.6 MG TABLET PO SCH (09:36)
[2020-03-28] MEDS: carvediloL 12.5 MG TABLET PO SCH (09:36)
[2020-03-28] MEDS: metOLazone 5 MG TABLET PO SCH (09:36)
[2020-03-28] MEDS: ISOSORBIDE DINITRATE 20 MG TABLET PO SCH (09:36)
[2020-03-28] MEDS: FUROSEMIDE 20 MG TABLET PO SCH (09:37)
[2020-03-28] MEDS: SACUBITRIL/VALSARTAN 49-51 MG TABLET PO SCH (09:37)
[2020-03-28] MEDS: LINACLOTIDE 145 MCG CAPSULE PO SCH (09:37)
[2020-03-28] MEDS: DOCUSATE SODIUM 100 MG CAPSULE PO SCH (09:37)
[2020-03-28] MEDS: SPIRONOLACTONE 25 MG TABLET PO SCH (09:37)
[2020-03-28] MEDS: POLYETHYLENE GLYCOL POWDER 17 GM PACK PO SCH (09:38)
[2020-03-28] MEDS: LACTULOSE 20 GM/30 ML UDCUP PO SCH (09:38)
[2020-03-28] MEDS: ACETAMINOPHEN 325 MG TABLET PO PRN (09:56)
[2020-03-28 17:26] VITALS: BP 90/71
== END 2020-03-28 14:33 | disposition home or self-care (01) | DRG 291 ==
LOC: N.ED 19:54 → SUATTDRO 22:29 → N.EDINP 22:29 → N.TELES 03-19 13:02
PROVIDERS: ADMIT Hospitalist; ATTEND Family Medicine

== ENCOUNTER 2020-04-12 18:52 | Inpatient (IN) ==
[2020-04-12] MEDS ORDERED: cefTRIAXone 1,000 MG in SODIUM CHLORIDE 0.9% 100 ML IV STA (19:36)
[2020-04-12] MEDS ORDERED: FUROSEMIDE 100 MG/10 ML VIAL IV STA (19:36)
[2020-04-12 20:16] LABS: Basophils # 0.1 10*3/uL (0.0-0.2); Basophils % 0.7 % (0.0-0.8); Eosinophils # 0.1 10*3/uL (0.0-0.87); Eosinophils % 1.3 % (0.00-10.9); Hematocrit 37.1 VOL% (35.7-47.0); Hemoglobin 11.4 GM/DL (12.0-16.0); Immature Granulocytes % 0.3 %; Immature Granulocytes Absolute 0.02 #; Lymphocytes # 2.4 10*3/uL (1.4-4.0); Lymphocytes % 33.5 % (21.3-54.2); Mean Corpuscular HGB Conc 30.7 GM/DL (32-36); Mean Corpuscular Volume 77.6 FL (87-102); Mean Platelet Volume 8.7 FL (9.6-12.0); Monocytes % 7.6 % (1.7-12.7); Neutrophils % 56.6 % (38.7-73.9); Platelet Count 327 T/CUMM (130-400); Red Blood Count 4.78 MC/CUMM (3.8-5.5); Red Cell Distribution Width 19.9 % (9.3-17.3); White Blood Count 7.1 T/CUMM (4-12)
[2020-04-12 20:32] LABS: Albumin 3.3 G/DL (3.4-5.0); Calcium 9.1 MG/DL (8.5-10.1); Osmolality,Calculated 274.7 MOS/KG (273-304); Total Protein 7.1 G/DL (6.4-8.3)
[2020-04-12] MEDS ORDERED: LABETALOL 20 MG/4 ML SYRINGE IV STA (20:54)
[2020-04-12 21:47] LABS: INR 1.2; PT Patient Result 12.9 SECS (9.8-11.9)
[2020-04-13] MEDS ORDERED: MAGNESIUM SULF RIDER 2 GM in PREMIX 1 EACH IV PRN (00:40)
[2020-04-13] MEDS ORDERED: MAGNESIUM SULF RIDER 4 GM in PREMIX 1 EACH IV PRN (00:40)
[2020-04-13] MEDS ORDERED: ALBUTEROL 2.5 MG/3 ML NEB RESP TX PRN (00:44)
[2020-04-13] MEDS: FUROSEMIDE 40 MG/4 ML VIAL IV SCH ×3 (01:06→17:14)
[2020-04-13] MEDS ORDERED: SACUBITRIL/VALSARTAN 49-51 MG TABLET PO ONE (01:15)
[2020-04-13] MEDS ORDERED: carvediloL 3.125 MG TABLET PO ONE (01:15)
[2020-04-13] MEDS ORDERED: ISOSORBIDE DINITRATE 20 MG TABLET PO ONE (01:16)
[2020-04-13] MEDS ORDERED: hydrALAZINE 20 MG/1 ML VIAL IV PRN (01:17)
[2020-04-13] MEDS: MORPHINE 4 MG/1 ML VIAL IV PRN ×3 (01:33→22:46)
[2020-04-13 05:03] LABS: Basophils % 0.6 % (0.0-0.8); Eosinophils # 0.1 10*3/uL (0.0-0.87); Hematocrit 36.2 VOL% (35.7-47.0); Immature Granulocytes % 0.3 %; Immature Granulocytes Absolute 0.02 #; Lymphocytes % 28.8 % (21.3-54.2); Mean Corpuscular HGB Conc 29.3 GM/DL (32-36); Mean Corpuscular Volume 83.8 FL (87-102); Mean Platelet Volume 8.9 FL (9.6-12.0); Monocytes % 7.5 % (1.7-12.7); Neutrophils % 61.8 % (38.7-73.9); Platelet Count 242 T/CUMM (130-400); Red Blood Count 4.32 MC/CUMM (3.8-5.5); Red Cell Distribution Width 19.9 % (9.3-17.3)
[2020-04-13 05:05] LABS: Hemoglobin 10.6 GM/DL (12.0-16.0)
[2020-04-13 06:29] LABS: Calcium 8.4 MG/DL (8.5-10.1); Osmolality,Calculated 271.8 MOS/KG (273-304); Risk Ratio 5.33; Thyroid Stimulating Hormone 1.8 uIU/ml (0.358-3.74); VLDL CHOLESTEROL 13.8 MG/DL
[2020-04-13] MEDS ORDERED: MAGNESIUM SULF RIDER 2 GM in PREMIX 1 EACH IV ONE (07:57)
[2020-04-13] MEDS ORDERED: carvediloL 3.125 MG TABLET PO SCH (08:00)
[2020-04-13] MEDS: DOCUSATE SODIUM 100 MG CAPSULE PO SCH ×2 (08:16→21:27)
[2020-04-13] MEDS: PANTOPRAZOLE 40 MG TABLET PO SCH (08:16)
[2020-04-13] MEDS: MAGNESIUM CHLORIDE 64 MG TABLET PO SCH (08:16)
[2020-04-13] MEDS: APIXABAN 5 MG TABLET PO SCH ×2 (08:16→21:27)
[2020-04-13] MEDS: POTASSIUM CHLORIDE 20 MEQ TABLET PO SCH (08:16)
[2020-04-13] MEDS: POLYETHYLENE GLYCOL POWDER 17 GM PACK PO SCH ×3 (08:16→21:28)
[2020-04-13] MEDS: FLUTICASONE/SALMETEROL 250-50 DISKUS 14 DOSE INH SCH ×2 (08:18→21:28)
[2020-04-13] MEDS: ISOSORBIDE DINITRATE 10 MG TABLET PO SCH ×2 (08:18→21:27)
[2020-04-13] MEDS ORDERED: SACUBITRIL/VALSARTAN 49-51 MG TABLET PO SCH (09:00)
[2020-04-13] MEDS ORDERED: metOLazone 2.5 MG TABLET PO SCH (09:00)
[2020-04-13] MEDS: metOLazone 2.5 MG TABLET PO SCH (10:18)
[2020-04-13] MEDS: LOSARTAN 50 MG TABLET PO SCH ×2 (10:18→21:27)
[2020-04-13] MEDS: carvediloL 6.25 MG TABLET PO SCH ×2 (10:19→17:14)
[2020-04-14] MEDS: FUROSEMIDE 40 MG/4 ML VIAL IV SCH ×2 (00:01→08:18)
[2020-04-14] MEDS: MORPHINE 4 MG/1 ML VIAL IV PRN (05:26)
[2020-04-14 05:35] LABS: Basophils % 0.7 % (0.0-0.8); Eosinophils # 0.2 10*3/uL (0.0-0.87); Eosinophils % 3.8 % (0.00-10.9); Hematocrit 30.4 VOL% (35.7-47.0); Hemoglobin 9.5 GM/DL (12.0-16.0); Immature Granulocytes % 0.9 %; Immature Granulocytes Absolute 0.04 #; Lymphocytes # 1.6 10*3/uL (1.4-4.0); Lymphocytes % 35.4 % (21.3-54.2); Mean Corpuscular HGB Conc 31.3 GM/DL (32-36); Mean Corpuscular Volume 78.8 FL (87-102); Mean Platelet Volume 9.2 FL (9.6-12.0); Monocytes % 10.5 % (1.7-12.7); Neutrophils % 48.7 % (38.7-73.9); Platelet Count 281 T/CUMM (130-400); Red Blood Count 3.86 MC/CUMM (3.8-5.5); White Blood Count 4.5 T/CUMM (4-12)
[2020-04-14 05:57] LABS: Calcium 8.5 MG/DL (8.5-10.1); Osmolality,Calculated 282.3 MOS/KG (273-304)
[2020-04-14 06:03] LABS: Calcium 8.4 MG/DL (8.5-10.1); Osmolality,Calculated 280.4 MOS/KG (273-304)
[2020-04-14 06:12] LABS: Anisocytosis 2+; Band Neutrophils 2 % (0-10); Eosinophils 4 % (0-10); Hypochromasia 2+; Lymphocytes 34 % (20-55); Microcytosis 2+; Nucleated Red Blood Cells 1 (0-5); Platelet Estimate Normal; Reactive Lymphocytes 2+; Segmented Neutrophils 50 % (50-85); Target Cells 1+; Total Cells Counted 100
[2020-04-14] MEDS: APIXABAN 5 MG TABLET PO SCH (08:16)
[2020-04-14] MEDS: POTASSIUM CHLORIDE 20 MEQ TABLET PO SCH (08:16)
[2020-04-14] MEDS: FLUTICASONE/SALMETEROL 250-50 DISKUS 14 DOSE INH SCH (08:16)
[2020-04-14] MEDS: ISOSORBIDE DINITRATE 10 MG TABLET PO SCH (08:16)
[2020-04-14] MEDS: carvediloL 6.25 MG TABLET PO SCH (08:16)
[2020-04-14] MEDS: LOSARTAN 50 MG TABLET PO SCH (08:17)
[2020-04-14] MEDS: metOLazone 2.5 MG TABLET PO SCH (08:17)
[2020-04-14] MEDS: PANTOPRAZOLE 40 MG TABLET PO SCH (08:17)
[2020-04-14] MEDS: DOCUSATE SODIUM 100 MG CAPSULE PO SCH (08:17)
[2020-04-14] MEDS: MAGNESIUM CHLORIDE 64 MG TABLET PO SCH (08:17)
[2020-04-14] MEDS: POLYETHYLENE GLYCOL POWDER 17 GM PACK PO SCH ×2 (08:18→15:03)
[2020-04-14 11:49] VITALS: BP 128/76
== END 2020-04-14 15:25 | disposition home or self-care (01) | DRG 304 ==
LOC: N.ED 18:52 → N.EDINP 23:20 → SUATTDRO 23:20 → N.ICU 04-13 00:35 → N.4E 04-13 13:42
PROVIDERS: ADMIT Phlebology; ATTEND Internal Medicine

== ENCOUNTER 2020-04-30 18:41 | Observation (INO) ==
[2020-04-30] MEDS ORDERED: methylPREDNISolone SOD SUC 125 MG/2 ML VIAL IV STA (19:11)
[2020-04-30] MEDS ORDERED: FUROSEMIDE 100 MG/10 ML VIAL IV STA (19:11)
[2020-04-30] MEDS ORDERED: MORPHINE 4 MG/1 ML VIAL IV STA (19:11)
[2020-04-30] MEDS ORDERED: ONDANSETRON 4 MG/2 ML VIAL IV STA (19:11)
[2020-04-30] MEDS ORDERED: ALBUTEROL NEB SOLN 5 MG/ML 20 ML/BOTTLE CONT NEB SCH (19:30)
[2020-04-30 20:38] LABS: Basophils % 0.3 % (0.0-0.8); Eosinophils # 0.1 10*3/uL (0.0-0.87); Eosinophils % 0.7 % (0.00-10.9); Hematocrit 34.1 VOL% (35.7-47.0); Hemoglobin 10.9 GM/DL (12.0-16.0); Immature Granulocytes % 0.3 %; Immature Granulocytes Absolute 0.02 #; Lymphocytes # 1.9 10*3/uL (1.4-4.0); Mean Platelet Volume 8.8 FL (9.6-12.0); Monocytes % 6.6 % (1.7-12.7); Neutrophils % 64.1 % (38.7-73.9); Platelet Count 306 T/CUMM (130-400); Red Blood Count 4.43 MC/CUMM (3.8-5.5); Red Cell Distribution Width 18.6 % (9.3-17.3); White Blood Count 6.7 T/CUMM (4-12)
[2020-04-30 20:49] LABS: INR 1.1; PT Patient Result 11.9 SECS (9.8-11.9)
[2020-04-30 21:01] LABS: Albumin 3.2 G/DL (3.4-5.0); Bilirubin,Total 0.6 MG/DL (0.2-1.0); Calcium 8.7 MG/DL (8.5-10.1); Osmolality,Calculated 281.3 MOS/KG (273-304); Total Protein 7.1 G/DL (6.4-8.3)
[2020-04-30 21:05] LABS: Bacteria,Urine Occasional /HPF (Few); Bilirubin,Urine Negative (Negative); Blood, Urine Negative (Negative); Glucose,Urine (UA) Negative (Negative); Hyaline Casts,Urine 4 /LPF (0-3); Ketones,Urine Negative (Negative); Mucus,Urine Occasional /LPF (Occasional); Nitrite,Urine Negative (Negative); Protein,Urine 30 MG/DL; RBC,Urine 2 /HPF (0-4); Squamous Epithelial Cell,Urine Few /HPF (0-10); Urine Appearance Slightly Hazy (Clear); Urine Color Yellow (Yellow); Urine Urobilinogen < 2.0 EU/DL (0.2-1.0); WBC,Urine 1 /HPF (0-6)
[2020-04-30 21:07] LABS: Barbiturates Screen,Urine Negative (Negative); Benzodiazepines Screen,Urine Negative (Negative); Cannabinoid Screen,Urine Negative (Negative); Opiate Screen,Urine Negative (Negative); Phencyclidine Screen,Urine Negative (Negative)
[2020-04-30] MEDS ORDERED: hydrALAZINE 20 MG/1 ML VIAL IV STA (21:19)
[2020-04-30] MEDS ORDERED: hydrALAZINE 20 MG/1 ML VIAL ONE (21:20)
[2020-04-30] MEDS ORDERED: MAGNESIUM SULF RIDER 2 GM in PREMIX 1 EACH IV STA (21:33)
[2020-04-30] MEDS ORDERED: DOCUSATE SODIUM 100 MG CAPSULE PO PRN (22:51)
[2020-04-30] MEDS ORDERED: GLUCAGON 1 MG VIAL IM PRN ×2 (22:51)
[2020-04-30] MEDS ORDERED: ACETAMINOPHEN 325 MG TABLET PO PRN (22:51)
[2020-04-30] MEDS ORDERED: DEXTROSE 50% 25 GM/50 ML VIAL IV PRN ×2 (22:51)
[2020-04-30] MEDS ORDERED: ALBUTEROL 2.5 MG/3 ML NEB RESP TX PRN (22:51)
[2020-04-30] MEDS ORDERED: AZITHROMYCIN INJ 500 MG in SODIUM CHLORIDE 0.9% 250 ML IV SCH (23:00)
[2020-05-01] MEDS: ALBUTEROL/IPRATROPIUM 3 ML NEB RESP TX SCH ×4 (01:10→19:00)
[2020-05-01] MEDS ORDERED: methylPREDNISolone SOD SUC 125 MG/2 ML VIAL IV SCH (04:00)
[2020-05-01] MEDS: MORPHINE 4 MG/1 ML VIAL IV PRN (05:05)
[2020-05-01 06:37] LABS: Hematocrit 35.6 VOL% (35.7-47.0); Hemoglobin 11.3 GM/DL (12.0-16.0); Immature Granulocytes % 0.5 %; Immature Granulocytes Absolute 0.04 #; Lymphocytes # 0.6 10*3/uL (1.4-4.0); Lymphocytes % 7.4 % (21.3-54.2); Mean Corpuscular HGB Conc 31.7 GM/DL (32-36); Mean Corpuscular Volume 77.1 FL (87-102); Mean Platelet Volume 8.8 FL (9.6-12.0); Monocytes % 0.5 % (1.7-12.7); Neutrophils % 91.6 % (38.7-73.9); Platelet Count 307 T/CUMM (130-400); Red Blood Count 4.62 MC/CUMM (3.8-5.5); Red Cell Distribution Width 18.6 % (9.3-17.3); White Blood Count 7.8 T/CUMM (4-12)
[2020-05-01 06:50] LABS: Calcium 8.9 MG/DL (8.5-10.1); Osmolality,Calculated 277.7 MOS/KG (273-304)
[2020-05-01 07:14] LABS: Band Neutrophils 1 % (0-10); Hypochromasia 1+; Lymphocytes 8 % (20-55); Microcytosis 1+; Ovalocytes Slight; Platelet Estimate Adequate; Segmented Neutrophils 90 % (50-85); Total Cells Counted 100
[2020-05-01] MEDS ORDERED: ALUM/MAG/SIMETH/LIDO VISC 1:1 30 ML BOTTLE PO ONE (07:59)
[2020-05-01] MEDS: INSULIN LISPRO 100 UNIT/ML SUBCUT SCH ×4 (08:08→20:55)
[2020-05-01] MEDS: POLYETHYLENE GLYCOL POWDER 17 GM PACK PO SCH ×3 (08:39→20:53)
[2020-05-01] MEDS: APIXABAN 5 MG TABLET PO SCH ×2 (08:40→20:54)
[2020-05-01] MEDS: carvediloL 6.25 MG TABLET PO SCH ×2 (08:40→20:54)
[2020-05-01] MEDS: PANTOPRAZOLE 40 MG TABLET PO SCH (08:40)
[2020-05-01] MEDS: SENNA 8.6 MG TABLET PO SCH ×2 (08:40→20:55)
[2020-05-01] MEDS: POTASSIUM CHLORIDE 20 MEQ TABLET PO SCH (08:40)
[2020-05-01] MEDS: LOSARTAN 50 MG TABLET PO SCH ×2 (08:40→20:54)
[2020-05-01] MEDS: FLUTICASONE/SALMETEROL 250-50 DISKUS 14 DOSE INH SCH ×2 (08:40→20:52)
[2020-05-01] MEDS: ISOSORBIDE DINITRATE 20 MG TABLET PO SCH ×2 (08:41→20:55)
[2020-05-01] MEDS: FUROSEMIDE 40 MG/4 ML VIAL IV SCH ×2 (08:47→15:20)
[2020-05-01] MEDS ORDERED: AZITHROMYCIN 250 MG TABLET PO SCH (09:00)
[2020-05-01] MEDS ORDERED: ENOXAPARIN 40 MG/0.4 ML SYRINGE SUBCUT SCH (09:00)
[2020-05-01] MEDS ORDERED: KETOROLAC 30 MG/1 ML VIAL IV ONE (10:02)
[2020-05-01] MEDS: MAGNESIUM CHLORIDE 64 MG TABLET PO SCH (10:45)
[2020-05-01] MEDS: metOLazone 2.5 MG TABLET PO SCH (10:46)
[2020-05-01] MEDS: DOCUSATE SODIUM 100 MG CAPSULE PO SCH ×2 (10:46→20:54)
[2020-05-01] MEDS: ONDANSETRON 4 MG/2 ML VIAL IV PRN (13:14)
[2020-05-02] MEDS: ALBUTEROL/IPRATROPIUM 3 ML NEB RESP TX SCH ×4 (00:02→19:31)
[2020-05-02 05:53] LABS: Basophils % 0.1 % (0.0-0.8); Hematocrit 33.6 VOL% (35.7-47.0); Hemoglobin 10.6 GM/DL (12.0-16.0); Immature Granulocytes % 0.6 %; Immature Granulocytes Absolute 0.08 #; Lymphocytes % 13.7 % (21.3-54.2); Mean Corpuscular HGB Conc 31.5 GM/DL (32-36); Mean Corpuscular Volume 76.7 FL (87-102); Mean Platelet Volume 9.1 FL (9.6-12.0); Monocytes % 5.8 % (1.7-12.7); Neutrophils % 79.8 % (38.7-73.9); Platelet Count 345 T/CUMM (130-400); Red Blood Count 4.38 MC/CUMM (3.8-5.5); Red Cell Distribution Width 18.9 % (9.3-17.3); White Blood Count 14.5 T/CUMM (4-12)
[2020-05-02 06:10] LABS: Calcium 9.1 MG/DL (8.5-10.1); Osmolality,Calculated 278.7 MOS/KG (273-304)
[2020-05-02] MEDS: carvediloL 6.25 MG TABLET PO SCH ×2 (09:04→21:15)
[2020-05-02] MEDS: MAGNESIUM CHLORIDE 64 MG TABLET PO SCH (09:04)
[2020-05-02] MEDS: MULTIVITAMIN (CENTRUM) TABLET PO SCH (09:04)
[2020-05-02] MEDS: metOLazone 2.5 MG TABLET PO SCH (09:04)
[2020-05-02] MEDS: LOSARTAN 50 MG TABLET PO SCH ×2 (09:05→21:15)
[2020-05-02] MEDS: DOCUSATE SODIUM 100 MG CAPSULE PO SCH ×2 (09:05→21:13)
[2020-05-02] MEDS: PANTOPRAZOLE 40 MG TABLET PO SCH (09:06)
[2020-05-02] MEDS: THIAMINE 100 MG TABLET PO SCH (09:06)
[2020-05-02] MEDS: SENNA 8.6 MG TABLET PO SCH ×2 (09:06→21:14)
[2020-05-02] MEDS: ISOSORBIDE DINITRATE 20 MG TABLET PO SCH ×2 (09:06→21:15)
[2020-05-02] MEDS: APIXABAN 5 MG TABLET PO SCH ×2 (09:07→21:13)
[2020-05-02] MEDS: POTASSIUM CHLORIDE 20 MEQ TABLET PO SCH (09:07)
[2020-05-02] MEDS: POLYETHYLENE GLYCOL POWDER 17 GM PACK PO SCH ×3 (09:08→21:16)
[2020-05-02] MEDS: FUROSEMIDE 40 MG/4 ML VIAL IV SCH ×2 (09:10→15:26)
[2020-05-02] MEDS: INSULIN LISPRO 100 UNIT/ML SUBCUT SCH ×4 (09:14→21:18)
[2020-05-02] MEDS: FLUTICASONE/SALMETEROL 250-50 DISKUS 14 DOSE INH SCH ×2 (09:16→21:18)
[2020-05-02] MEDS ORDERED: KETOROLAC 30 MG/1 ML VIAL IV ONE (09:47)
[2020-05-02] MEDS ORDERED: AZITHROMYCIN 250 MG TABLET PO ONE (09:58)
[2020-05-02] MEDS ORDERED: cefTRIAXone 1,000 MG in SYRINGE 1 EACH IV ONE (09:58)
[2020-05-02] MEDS ORDERED: carvediloL 12.5 MG TABLET PO ONE (11:44)
[2020-05-02] MEDS ORDERED: TUBERCULIN SKIN TEST 0.1 ML SYRINGE INTRADERM ONE (12:54)
[2020-05-02] MEDS: ONDANSETRON 4 MG/2 ML VIAL IV PRN (15:31)
[2020-05-02] MEDS ORDERED: amLODIPine 10 MG TABLET PO ONE (15:48)
[2020-05-02] MEDS ORDERED: hydrALAZINE 20 MG/1 ML VIAL IV PRN (17:07)
[2020-05-02] MEDS ORDERED: minoxidiL 2.5 MG TABLET PO SCH (17:30)
[2020-05-02] MEDS: minoxidiL 2.5 MG TABLET PO SCH (21:13)
[2020-05-03] MEDS: ALBUTEROL/IPRATROPIUM 3 ML NEB RESP TX SCH ×2 (00:50→08:11)
[2020-05-03] MEDS: MORPHINE 4 MG/1 ML VIAL IV PRN (03:45)
[2020-05-03 07:51] VITALS: BP 133/66
[2020-05-03] MEDS ORDERED: carvediloL 12.5 MG TABLET PO SCH (09:00)
[2020-05-03] MEDS: INSULIN LISPRO 100 UNIT/ML SUBCUT SCH (09:36)
[2020-05-03] MEDS: FLUTICASONE/SALMETEROL 250-50 DISKUS 14 DOSE INH SCH (09:37)
[2020-05-03] MEDS: minoxidiL 2.5 MG TABLET PO SCH (09:37)
[2020-05-03] MEDS: THIAMINE 100 MG TABLET PO SCH (09:37)
[2020-05-03] MEDS: DOCUSATE SODIUM 100 MG CAPSULE PO SCH (09:38)
[2020-05-03] MEDS: PANTOPRAZOLE 40 MG TABLET PO SCH (09:38)
[2020-05-03] MEDS: metOLazone 2.5 MG TABLET PO SCH (09:38)
[2020-05-03] MEDS: APIXABAN 5 MG TABLET PO SCH (09:38)
[2020-05-03] MEDS: MAGNESIUM CHLORIDE 64 MG TABLET PO SCH (09:39)
[2020-05-03] MEDS: ISOSORBIDE DINITRATE 20 MG TABLET PO SCH (09:40)
[2020-05-03] MEDS: MULTIVITAMIN (CENTRUM) TABLET PO SCH (09:40)
[2020-05-03] MEDS: SENNA 8.6 MG TABLET PO SCH (09:40)
[2020-05-03] MEDS: POTASSIUM CHLORIDE 20 MEQ TABLET PO SCH (09:40)
[2020-05-03] MEDS: LOSARTAN 50 MG TABLET PO SCH (09:40)
[2020-05-03] MEDS: POLYETHYLENE GLYCOL POWDER 17 GM PACK PO SCH (09:42)
[2020-05-03] MEDS: FUROSEMIDE 40 MG/4 ML VIAL IV SCH (09:42)
[2020-05-03] MEDS ORDERED: minoxidiL 2.5 MG TABLET PO SCH (17:11)
== END 2020-05-03 10:54 | disposition home or self-care (01) ==
LOC: N.ED 18:41 → N.EDINP 18:41 → SUATTDRO 22:51 → N.EDINP 05-01 00:42 → N.TELEN 05-01 02:05
PROVIDERS: ADMIT Internal Medicine; ATTEND Internal Medicine